=== PATIENT | male | born 1990 | race Caucasian/White ===

== ENCOUNTER 2018-12-19 13:53 | Inpatient (IN) | payer OTHER ==
[~2018-12-19] VITALS: Ht 193 cm; Wt 99.8 kg
[2018-12-19] MEDS ORDERED: TRUVADA 200 MG1 EAC1 ORAL (14:02)
[2018-12-19] MEDS ORDERED: Omnipaque-300 100ml vial INJ PRN (14:15)
--- NOTE | 2018-12-19 14:22 | Emergency Room Report ---
History of Present Illness General Chief Complaint: Abdominal Pain Source: Patient Present Illness HPI Disclaimer: Please note that this report is being documented using PuzlON technology. This can lead to erroneous entry secondary to incorrect interpretation by the dictating instrument. HPI: Otherwise healthy 28-year-old male presents for evaluation of abdominal pain. He was referred to the emergency department for CT scan and preop labs by Dr. Adan. He has been having right lower quadrant abdominal pain that is aching and constant throughout the day. It is worse when sitting upright and walking and better with laying flat. Sometimes when he lays that the pain completely goes away but is been coming back for approximately 3 weeks. Denies abdominal pain to other parts of the abdomen, nausea, vomiting. Does note some loose stools. Denies fever or chills but notes intermittent sweats. Denies chest pain or shortness of breath. No prior history of abdominal surgeries. He was found to have a small nonincarcerated hernia in the right lower quadrant by ultrasound at the office of Dr. Mahogany Tolliver however there is concern for peritonitis he has the pain is out of proportion to exam. Pain is currently a 4 /10. PMH: Denies PSH: Denies Allergies: Denies Social Hx: Denies drug or alcohol abuse Allergies: Coded Allergies: No Known Allergies (Unverified , 12/19/18) Nursing Documentation-PMH Past Medical History: No Stated History Review of Systems All Other Systems: negative except mentioned in HPI Physical Exam Vital Signs Date Time Temp Pulse Resp B/P (MAP) Pulse Ox O2 Delivery O2 Flow Rate FiO2 12/19/18 13:57 99.1 88 16 142/84 (103) 98 Room Air General: Awake and alert, no acute distress HEENT: NC/AT. EOMI. Cardiovascular: RRR. S1 and S2 normal. No murmur appreciated Resp: Normal work of breathing. No cough, wheezing or crackles appreciated Abdomen: Abdomen is soft, nondistended. Tenderness palpation of the right lower quadrant near the anterior iliac crest. No rebound. Negative Rovsing, negative psoas. No periumbilical tenderness or suprapubic tenderness. No Haider sign. No masses palpable : Testes are in anatomic position. No mass in the scrotum. Skin: Intact. No abrasions, laceration or rash over the exposed skin MSK: Normal tone and bulk. Moving all extremities. No obvious deformity. Neuro: Awake and alert. Mentating appropriately. Medical Decision Making Diagnostic Impression: Primary Impression: Abdominal abscess ER Course 28-year-old male presents for evaluation of 3 weeks right lower quadrant pain. He has a known hernia however there is concern for peritonitis and will obtain a CT scan as well preop labs. Dr. Polk will be contacted with the results. Currently states pain is 4/10 and declined pain medication at this time. We will start IV fluids. Laboratory Tests Test 12/19/18 14:30 White Blood Count 20.3 K/UL (4.8-10.8) H Red Blood Count 4.61 M/UL (4.70-6.10) L Hemoglobin 14.8 G/DL (14.2-18.0) Hematocrit 42.8 % (42.0-52.0) Mean Corpuscular Volume 93 FL (80-99) Mean Corpuscular Hemoglobin 32.0 PG (27.0-31.0) H Mean Corpuscular Hemoglobin Concent 34.5 G/DL (32.0-36.0) Red Cell Distribution Width 10.1 % (11.6-14.8) L Platelet Count 260 K/UL (150-450) Mean Platelet Volume 7.4 FL (6.5-10.1) Neutrophils (%) (Auto) % (45.0-75.0) Lymphocytes (%) (Auto) % (20.0-45.0) Monocytes (%) (Auto) % (1.0-10.0) Eosinophils (%) (Auto) % (0.0-3.0) Basophils (%) (Auto) % (0.0-2.0) Neutrophils % (Manual) Pending Lymphocytes % (Manual) Pending Platelet Estimate Pending Platelet Morphology Pending Prothrombin Time 12.6 SEC (9.30-11.50) H Prothrombin Time INR 1.2 (0.9-1.1) H PTT 30 SEC (23-33) Urine Color Yellow Urine Appearance Clear Urine pH 6.5 (4.5-8.0) Urine Specific [place] 1.005 (1.005-1.035) Urine Protein 2+ (NEGATIVE) H Urine Glucose (UA) Negative (NEGATIVE) Urine Ketones 1+ (NEGATIVE) H Urine Blood Negative (NEGATIVE) Urine Nitrite Negative (NEGATIVE) Urine Bilirubin Negative (NEGATIVE) Urine Urobilinogen Normal MG/DL (0.0-1.0) Urine Leukocyte Esterase Negative (NEGATIVE) Urine RBC 0 /HPF (0 - 0) Urine WBC 0-2 /HPF (0 - 0) Urine Squamous Epithelial Cells Few /LPF (NONE/OCC) Urine Bacteria Occasional /HPF (NONE) Urine Mucus Few /LPF (NONE/OCC) H Sodium Level 135 MMOL/L (136-145) L Potassium Level 3.8 MMOL/L (3.5-5.1) Chloride Level 99 MMOL/L (98-107) Carbon Dioxide Level 31 MMOL/L (21-32) Anion Gap 5 mmol/L (5-15) Blood Urea Nitrogen 9 mg/dL (7-18) Creatinine 1.3 MG/DL (0.55-1.30) Estimate Glomerular Filtration Rate > 60 mL/min (>60) Glucose Level 105 MG/DL (74-106) Calcium Level 9.1 MG/DL (8.5-10.1) Total Bilirubin 1.4 MG/DL (0.2-1.0) H Direct Bilirubin 0.3 MG/DL (0.0-0.3) Aspartate Amino Transferase (AST) 29 U/L (15-37) Alanine Aminotransferase (ALT) 64 U/L (12-78) Alkaline Phosphatase 96 U/L (46-116) Total Protein 7.5 G/DL (6.4-8.2) Albumin 3.2 G/DL (3.4-5.0) L Globulin 4.3 g/dL Albumin/Globulin Ratio 0.7 (1.0-2.7) L Lipase 89 U/L (73-393) Reevaluation Time: 15:56 Last Vital Signs Date Time Temp Pulse Resp B/P (MAP) Pulse Ox O2 Delivery O2 Flow Rate FiO2 12/19/18 13:57 99.1 88 16 142/84 (103) 98 Room Air Reevaluation Impression Labs show significantly elevated white blood cell count of 20,000, no evidence of urinary tract infection, renal function is normal. My interpretation of the CT scan shows right-sided perinephric stranding as well as edema of the small and large bowel. I cannot visualize the appendix but the official radiologist interpretation is pending. Discussed with his surgeon, Dr. Adan, who would like him admitted to the medical service for monitoring. He will come reevaluate the patient. Will continue IV fluids, pain medication, give a dose of antibiotics. 1645: Radiology interpretation shows either a right lower quadrant intra-abdominal abscess or a ruptured appendix. Patient will be given Flagyl on top of the cefepime and continued IV fluids. Dr. Adan is requesting admission to Dr. Michelle which we will arrange. Patient remained stable for admission to medical floor. Disposition: ADMITTED INPATIENT Condition: Serious Elvis Hernandez MD Dec 19, 2018 14:22
[2018-12-19 14:47] LABS: APPEARANCE,URINE CLEAR; BILIRUBIN, URINE NEGATIVE (NEGATIVE); GLUCOSE, URINE (UA) NEGATIVE (NEGATIVE); KETONES,URINE 1+ (NEGATIVE); LEUKOCYTE ESTERASE ,URINE NEGATIVE (NEGATIVE); NITRITE,URINE NEGATIVE (NEGATIVE); PH,URINE 6.5 (4.5-8.0); PROTEIN,URINE 2+ (NEGATIVE); UROBILINOGEN,URINE NORMAL MG/DL (0.0-1.0)
[2018-12-19 14:51] LABS: COLOR,URINE YELLOW
[2018-12-19 15:00] LABS: HEMATOCRIT 42.8 % (42.0-52.0); HEMOGLOBIN 14.8 G/DL (14.2-18.0); MEAN CORPUSCULAR VOLUME 93 FL (80-99); PLATELET COUNT 260 K/UL (150-450); RED BLOOD COUNT 4.61 M/UL (4.70-6.10); RED CELL DISTRIBUTION WIDTH 10.1 % (11.6-14.8); WHITE BLOOD COUNT 20.3 K/UL (4.8-10.8)
[2018-12-19 15:07] LABS: INR 1.2 (0.9-1.1)
[2018-12-19 15:08] LABS: ANION GAP 5 mmol/L (5-15); BLOOD UREA NITROGEN 9 mg/dL (7-18); CALCIUM 9.1 MG/DL (8.5-10.1); CARBON DIOXIDE 31 MMOL/L (21-32); CHLORIDE 99 MMOL/L (98-107); CREATININE 1.3 MG/DL (0.55-1.30); POTASSIUM 3.8 MMOL/L (3.5-5.1); SODIUM 135 MMOL/L (136-145)
[2018-12-19 15:19] LABS: ALANINE AMINOTRANSFERASE 64 U/L (12-78); ALBUMIN 3.2 G/DL (3.4-5.0); ALBUMIN/GLOBULIN RATIO 0.7 (1.0-2.7); ALKALINE PHOSPHATASE 96 U/L (46-116); ASPARTATE AMINO TRANSFERASE 29 U/L (15-37); BILIRUBIN,TOTAL 1.4 MG/DL (0.2-1.0)
[2018-12-19 15:21] LABS: BILIRUBIN,DIRECT 0.3 MG/DL (0.0-0.3)
[2018-12-19] MEDS ORDERED: Cefepime HCl 1 GM in D5W 55 ML IVPB ONE (16:00)
[2018-12-19] MEDS ORDERED: Morphine Sulfate 2mg/ml Inj(IV/IM USE ONLY) IVP ONE (16:00)
[2018-12-19] MEDS ORDERED: D5 1/2NS 1,000 ML IV SCH (16:00)
--- NOTE | 2018-12-19 16:17 | Diagnostic Imaging Report ---
Indication: Abdominal pain Technique: Continuous helical transaxial imaging of the abdomen and pelvis was obtained from the lung bases to the pubic symphysis during intravenous contrast administration. Coronal 2-D reformats were also obtained. Study obtained in a Siemens sensation [address] Automatic Exposure Control was utilized. Total Dose length Product (DLP): [address] Dose Index Volume (CTDIvol): 16 mGy Comparison: None Findings: In the right lower quadrant of the abdomen, there is a multicystic partially enhancing mass or fluid collection. This is suspicious for a multiloculated abscess and is inseparable from the cecum. The hepatic flexure and transverse colon are identified but in the location of the multicystic mass the cecum is difficult to distinguish and may be collapsed or may be a part of this mass. Evaluation with oral contrast is recommended and repeat CT suggested. Surrounding fatty soft tissue stranding indicative of inflammation noted. There is some perinephric fluid present. Overall the area of the multiloculated abscess versus mass measures about 9 to 10 cm in the transverse axis and 13 cm craniocaudal. One consideration is a perforated appendicitis. Mild basilar reticulation noted consistent with atelectasis. The liver is enlarged measuring 19 cm. Spleen is enlarged measuring 15 cm. No evidence of bowel obstruction. Bladder is unremarkable. There is a small amount of pelvic free fluid. Gallbladder is unremarkable. There is no hydronephrosis. Impression: 8 x 9 x 13 cm multicystic mass versus multiloculated abscess in the right lower quadrant abdomen. Suspect this is abscess. This could be on the basis of ruptured appendicitis. Before any consideration of percutaneous biopsy/drainage or surgery, recommend repeating the CT with good oral contrast to ascertain the relationship of this mass/abscess with the cecum and ascending colon. Hepatosplenomegaly The CT scanner at [facility] is accredited by the [employer] and the scans are performed using dose optimization techniques as appropriate to a performed exam including Automatic Exposure control.
[2018-12-19 17:14] VITALS: BP 120/67
--- NOTE | 2018-12-19 17:22 | NUR ---
ED Nurse Note: pt walked in c/o rt lower abd pain x 3 weeks . blood and urine sent pt medicated ermd eval done ct done pt awaiting admit.
--- NOTE | 2018-12-19 17:24 | NUR ---
ED Nurse Note: pt from home no swabs needed. med recon done belongings list done.
--- NOTE | 2018-12-19 17:55 | NUR ---
NURSE NOTES: patient admtited to 418/ from ER under Dr. Phillips care. dx with colitis. alert. oriented. verbally responsive. no respiratory distress noted. mild discomfort on abd are. IV on RAC20 intact. room air. ambulatory. bed in the lowest position. call light within reach. notified dr. phillips for admission orders.
[2018-12-19 18:01] VITALS: BP 118/64
--- NOTE | 2018-12-19 19:40 | NUR ---
NURSE NOTES: RN received call from . MD will put the admission order for the patient.
--- NOTE | 2018-12-19 19:41 | NUR ---
HAND-OFF: Report given to ROCIO Diaz.
[2018-12-19] MEDS ORDERED: Morphine Sulfate 2mg/ml Inj(IV/IM USE ONLY) IVP PRN (19:45)
--- NOTE | 2018-12-19 19:57 | NUR ---
NURSE NOTES: Received patient in bed, awake, alert, oriented, IV site is clean dry and intact, no acute distress noted, ambulatory with stable gate. Call light is within reach, bed is in low position, locked and alarm is on, will continue to monitor for comfort and safety.
[2018-12-19 20:00] VITALS: BP 113/60
[2018-12-19] MEDS: D5NS 1,000 ML IV SCH (20:26)
[2018-12-19] MEDS: Heparin 5000 units/ml inj SUBQ SCH (20:28)
--- NOTE | 2018-12-19 20:44 | Consultation ---
History of Present Illness General Date patient seen: Dec 19, 2018 Reason for Hospitalization: Abdominal Pain Present Illness HPI This is a very pleasant 28-year-old male here from [place] who began to develop right lower quadrant abdominal discomfort approximately 2 weeks ago. Pain initially described as sharp right lower quadrant pain admitted with out radiation. He initially did not think much of it and recently went to his primary care physician for evaluation. Given the duration it was thought to be potential a new forming hernia as it was aggravated by movement and exercise. He had an ultrasound which identified a potential small right inguinal hernia. He was referred to myself for evaluation at which time I had seen in the office earlier this morning. Patient was seen evaluation in the office and on examination was noted to have significant right lower quadrant tenderness unlikely related to a hernia. Given duration and physical examination I recommended patient go directly to the emergency department for evaluation as I had a significant suspicion for possible to abdominal pathology. Patient came to ED at which time was noted to have a leukocytosis of 20,[address] scan with complex multiloculated fluid abscess in the right lower quadrant potentially perforated appendicitis. He was admitted for further care and management to medical service and I was consulted to surgically investigate and care for patient. Patient seen, patient evaluate, chart reviewed. Findings discussed with patient. Allergies: Coded Allergies: No Known Allergies (Unverified , 12/19/18) Medication History Scheduled Emtricitabine/Tenofovir 200-300MG* (Truvada 200-300MG*), 1 TAB ORAL DAILY, ( Reported) Patient History History Provided By: Patient Healthcare decision maker Resuscitation status Advanced Directive on File Past Medical/Surgical History Past Medical/Surgical History: (1) Abdominal abscess Review of Systems Review of Symptoms General ROS: no weight loss or fever Psychological ROS: no depression or mood changes, no memory loss Ophthalmic ROS: no visual changes or eye irritation ENT ROS: no nasal congestion, hearing loss, dizziness Allergy and Immunology ROS: no allergic symptoms or urticaria Hematological and Lymphatic ROS: no swollen glands, unusual bleeding or bruising Endocrine ROS: no polyuria, polydipsia, weight changes, temperature intolerance Respiratory ROS: no cough, shortness of breath, or wheezing Cardiovascular ROS: no chest pain or dyspnea on exertion Gastrointestinal ROS: abdominal pain, bright red blood in stool. Musculoskeletal ROS: no myalgias or arthralgias Neurological ROS: no TIA or stroke symptoms Dermatological ROS: no new or changing skin lesions, rashes or pruritis Physical Exam Physical Exam General appearance: alert, cooperative, no distress, appears stated age Head: Normocephalic, without obvious abnormality, atraumatic Eyes: conjunctivae/corneas clear. PERRL, EOM's intact. Fundi benign Throat: Lips, mucosa, and tongue normal. Teeth and gums normal Neck: supple, symmetrical, trachea midline, no adenopathy, thyroid: not enlarged, symmetric, no tenderness/mass/nodules, no carotid bruit and no JVD Lungs: clear to auscultation bilaterally Heart: regular rate and rhythm, S1, S2 normal, no murmur, click, rub or gallop Abdomen: soft, RLQ-tender with guarding. Bowel sounds normal. No masses, no organomegaly Extremities: extremities normal, atraumatic, no cyanosis or edema Pulses: 2+ and symmetric Skin: Skin color, texture, turgor normal. No rashes or lesions Neurologic: Grossly normal Last 24 Hour Vital Signs Date Time Temp Pulse Resp B/P (MAP) Pulse Ox O2 Delivery O2 Flow Rate FiO2 12/19/18 18:48 Room Air 12/19/18 18:40 Room Air 12/19/18 18:02 99.2 89 16 120/67 100 Room Air 12/19/18 18:01 99.2 86 19 118/64 99 Room Air 12/19/18 17:18 89 16 Room Air 12/19/18 17:14 99.2 89 16 120/67 100 Room Air 12/19/18 17:08 99.2 12/19/18 13:57 99.1 88 16 142/84 (103) 98 Room Air Laboratory Tests Test 12/19/18 14:30 White Blood Count 20.3 K/UL (4.8-10.8) H Red Blood Count 4.61 M/UL (4.70-6.10) L Hemoglobin 14.8 G/DL (14.2-18.0) Hematocrit 42.8 % (42.0-52.0) Mean Corpuscular Volume 93 FL (80-99) Mean Corpuscular Hemoglobin 32.0 PG (27.0-31.0) H Mean Corpuscular Hemoglobin Concent 34.5 G/DL (32.0-36.0) Red Cell Distribution Width 10.1 % (11.6-14.8) L Platelet Count 260 K/UL (150-450) Mean Platelet Volume 7.4 FL (6.5-10.1) Neutrophils (%) (Auto) % (45.0-75.0) Lymphocytes (%) (Auto) % (20.0-45.0) Monocytes (%) (Auto) % (1.0-10.0) Eosinophils (%) (Auto) % (0.0-3.0) Basophils (%) (Auto) % (0.0-2.0) Differential Total Cells Counted 100 Neutrophils % (Manual) 85 % (45-75) H Lymphocytes % (Manual) 9 % (20-45) L Monocytes % (Manual) 6 % (1-10) Eosinophils % (Manual) 0 % (0-3) Basophils % (Manual) 0 % (0-2) Band Neutrophils 0 % (0-8) Platelet Estimate Adequate Platelet Morphology Normal Red Blood Cell Morphology Normal Prothrombin Time 12.6 SEC (9.30-11.50) H Prothromb Time International Ratio 1.2 (0.9-1.1) H Activated Partial Thromboplast Time 30 SEC (23-33) Urine Color Yellow Urine Appearance Clear Urine pH 6.5 (4.5-8.0) Urine Specific [place] 1.005 (1.005-1.035) Urine Protein 2+ (NEGATIVE) H Urine Glucose (UA) Negative (NEGATIVE) Urine Ketones 1+ (NEGATIVE) H Urine Blood Negative (NEGATIVE) Urine Nitrite Negative (NEGATIVE) Urine Bilirubin Negative (NEGATIVE) Urine Urobilinogen Normal MG/DL (0.0-1.0) Urine Leukocyte Esterase Negative (NEGATIVE) Urine RBC 0 /HPF (0 - 0) Urine WBC 0-2 /HPF (0 - 0) Urine Squamous Epithelial Cells Few /LPF (NONE/OCC) Urine Bacteria Occasional /HPF (NONE) Urine Mucus Few /LPF (NONE/OCC) H Sodium Level 135 MMOL/L (136-145) L Potassium Level 3.8 MMOL/L (3.5-5.1) Chloride Level 99 MMOL/L (98-107) Carbon Dioxide Level 31 MMOL/L (21-32) Anion Gap 5 mmol/L (5-15) Blood Urea Nitrogen 9 mg/dL (7-18) Creatinine 1.3 MG/DL (0.55-1.30) Estimat Glomerular Filtration Rate > 60 mL/min (>60) Glucose Level 105 MG/DL (74-106) Calcium Level 9.1 MG/DL (8.5-10.1) Total Bilirubin 1.4 MG/DL (0.2-1.0) H Direct Bilirubin 0.3 MG/DL (0.0-0.3) Aspartate Amino Transf (AST/SGOT) 29 U/L (15-37) Alanine Aminotransferase (ALT/SGPT) 64 U/L (12-78) Alkaline Phosphatase 96 U/L (46-116) Total Protein 7.5 G/DL (6.4-8.2) Albumin 3.2 G/DL (3.4-5.0) L Globulin 4.3 g/dL Albumin/Globulin Ratio 0.7 (1.0-2.7) L Lipase 89 U/L (73-393) Height (Feet): 6 Height (Inches): 4.00 Weight (Pounds): 220 Medications Current Medications Medications (Trade) Dose Ordered Sig/Leslie Route PRN Reason Start Time Stop Time Status Last Admin Dose Admin Acetaminophen (Tylenol) 650 mg Q4H PRN ORAL Mild Pain/Temp > 100.5 12/19/18 20:15 01/18/19 20:14 12/19/18 20:26 Dextrose/Sodium Chloride 1,000 ml @ 100 mls/hr Q10H IV 12/19/18 19:45 01/18/19 19:44 12/19/18 20:26 Heparin Sodium (Porcine) (Heparin 5000 units/ml) 5,000 units EVERY 12 HOURS SUBQ 12/19/18 21:00 01/18/19 20:59 12/19/18 20:28 Iohexol (OMNIPAQUE-300 100ml) 100 ml NOW PRN INJ Radiology Procedure 12/19/18 14:15 12/21/18 14:10 Metronidazole 100 ml @ 100 mls/hr Q8HR IVPB 12/19/18 22:00 12/26/18 21:59 Morphine Sulfate (Morphine Sulfate) 1 mg Q4H PRN IVP For Pain 12/19/18 19:45 12/26/18 19:44 Ondansetron HCl (Zofran) 4 mg Q6H PRN IVP Nausea & Vomiting 12/19/18 19:45 01/18/19 19:44 Pantoprazole (Protonix) 40 mg DAILY IVP 12/20/18 09:00 01/19/19 08:59 Piperacillin Sod/ Tazobactam Sod 3.375 gm/Sodium Chloride 110 ml @ 27.5 mls/hr EVERY 8 HOURS IVPB 12/19/18 22:00 12/24/18 21:59 Assessment/Plan Problem List: (1) Perforated appendicitis Assessment & Plan: This is a 28-year-old male with 2-week of right lower quadrant abdominal pain who was noted to have focal right lower quadrant tenderness with rebound and guarding on my examination. Leukocytosis 20,000. CT scan with complex multiloculated fluid collection abscess in the right lower quadrant indistinct from the cecum. Likely her presenting acute perforated appendicitis with abscess. Given the duration and above CT findings and high suspicion for perforated acute appendicitis. At this time would recommend nonoperative management with IV antibiotics. Will discuss with radiology for potential catheter drainage if possible. Okay for diet from surgical standpoint will follow with exam, investigation, recommendations. Thank you ICD Codes: K35.32 - Acute appendicitis with perforation and localized peritonitis, without abscess SNOMED: 96208488 (2) Abdominal abscess Assessment & Plan: In the right lower quadrant of the abdomen, there is a multicystic partially enhancing mass or fluid collection. This is suspicious for a multiloculated abscess and is inseparable from the cecum. The hepatic flexure and transverse colon are identified but in the location of the multicystic mass the cecum is difficult to distinguish and may be collapsed or may be a part of this mass. Evaluation with oral contrast is recommended and repeat CT suggested. Surrounding fatty soft tissue stranding indicative of inflammation noted. There is some perinephric fluid present. Overall the area of the multiloculated abscess versus mass measures about 9 to 10 cm in the transverse axis and 13 cm craniocaudal. One consideration is a perforated appendicitis. Mild basilar reticulation noted consistent with atelectasis. The liver is enlarged measuring 19 cm. Spleen is enlarged measuring 15 cm. No evidence of bowel obstruction. Bladder is unremarkable. There is a small amount of pelvic free fluid. Gallbladder is unremarkable. There is no hydronephrosis. SNOMED: [id number] Elmer Adan Dec 19, 2018 20:44
[2018-12-19] MEDS: Piperacillin/Tazobactam 3.375 GM in NS 110 ML IVPB SCH (22:13)
[2018-12-20] VITALS: BP 99/58
[2018-12-20 04:00] VITALS: BP 106/53
[2018-12-20] MEDS: D5NS 1,000 ML IV SCH ×2 (04:58→17:37)
[2018-12-20 05:57] LABS: HEMATOCRIT 38.3 % (42.0-52.0); HEMOGLOBIN 13.5 G/DL (14.2-18.0); MEAN CORPUSCULAR VOLUME 92 FL (80-99); PLATELET COUNT 264 K/UL (150-450); RED BLOOD COUNT 4.17 M/UL (4.70-6.10); RED CELL DISTRIBUTION WIDTH 10.4 % (11.6-14.8); WHITE BLOOD COUNT 16.5 K/UL (4.8-10.8)
[2018-12-20] MEDS: Piperacillin/Tazobactam 3.375 GM in NS 110 ML IVPB SCH ×3 (06:04→21:50)
[2018-12-20 06:15] LABS: ALANINE AMINOTRANSFERASE 65 U/L (12-78); ALBUMIN 2.7 G/DL (3.4-5.0); ALBUMIN/GLOBULIN RATIO 0.7 (1.0-2.7); ALKALINE PHOSPHATASE 93 U/L (46-116); ANION GAP 6 mmol/L (5-15); ASPARTATE AMINO TRANSFERASE 31 U/L (15-37); BILIRUBIN,TOTAL 0.8 MG/DL (0.2-1.0); BLOOD UREA NITROGEN 11 mg/dL (7-18); CALCIUM 8.7 MG/DL (8.5-10.1); CARBON DIOXIDE 29 MMOL/L (21-32); CHLORIDE 101 MMOL/L (98-107); CREATININE 1.3 MG/DL (0.55-1.30); INR 1.2 (0.9-1.1); POTASSIUM 3.9 MMOL/L (3.5-5.1); SODIUM 136 MMOL/L (136-145)
--- NOTE | 2018-12-20 07:08 | NUR ---
HAND-OFF: Report given to Wade CHAN.
--- NOTE | 2018-12-20 07:54 | NUR ---
NURSE NOTES: Patient alert x4; on room air, no sing of distress and shortness of breath; no sing of chest pain; IV Right AC 20G D5NS 100cc running; side rails up x2, breaks engaged, bed at lowest position; call light within reach; will keep monitoring.
[2018-12-20 08:00] VITALS: BP 115/65
[2018-12-20] MEDS: Pantoprazole Inj IVP SCH (08:45)
[2018-12-20] MEDS: Heparin 5000 units/ml inj SUBQ SCH ×2 (08:48→20:24)
--- NOTE | 2018-12-20 10:30 | History and Physical Report ---
DATE OF ADMISSION: 12/19/2018 CHIEF COMPLAINT: Possible ruptured appendicitis. HISTORY OF PRESENT ILLNESS: The patient is a 28-year-old male. He has no past medical history. He presented to his PMD with two weeks of right lower quadrant abdominal pain. He states he had an ultrasound that showed a possible small hernia. His pain persisted and he was then referred to a surgeon, who ordered a CAT scan that showed a loculated fluid collection in the right lower quadrant. The patient does admit to some subjective fevers and chills, but he has had no anorexia, no nausea, no vomiting. Denies any diarrhea or bright red blood per rectum. In light of the CT scan findings, he is now admitted for further evaluation and care. PAST MEDICAL HISTORY: None. PAST SURGICAL HISTORY: None. CURRENT MEDICATIONS: Include only . FAMILY HISTORY: Noncontributory. SOCIAL HISTORY: Negative for tobacco, ethanol, or drugs. REVIEW OF SYSTEMS: Unremarkable except for subjective fevers and chills and right lower quadrant abdominal pain. PHYSICAL EXAMINATION: VITAL SIGNS: Temperature 101.8, pulse 87, respirations 18, and blood pressure 106/53. GENERAL: The patient is well-developed, no apparent distress. HEART: Regular rate and rhythm. LUNGS: Clear. ABDOMEN: Soft. Minimally tender in the right lower quadrant. There is no rebound or guarding. EXTREMITIES: Without clubbing, cyanosis, or edema. LABORATORY DATA: Sodium 135, potassium 3.8, chloride 99, bicarb 31, BUN 9, creatinine 1.3. Total bilirubin of 1.4. INR is 1.2. White count is 20,000, hemoglobin 14, hematocrit 42, platelets 260. ASSESSMENT: This is a pleasant male, no past medical history, who presents with complaints of two weeks of right lower quadrant abdominal pain and CT scan findings consistent with possible ruptured appendicitis. PLAN: IV antibiotics. Followup cultures. Surgical followup. The patient is medically stable with surgery as needed. His perioperative risk is average for his age and sex. Cedrick Michelle M.D. DR: RADHA JOB#: [id number] CC:
[2018-12-20 12:00] VITALS: BP 106/60
--- NOTE | 2018-12-20 12:51 | NUR ---
CASE MANAGEMENT:REVIEW 28 YR OLD MALE PRESENTED TO ER CC: ABDOMINAL PAIN SI: ABDOMINAL ABSCESS 99.2 88 16 142/84 98% ON RA WBC+20.3 IS: 1L NS BOLUS IV CEFEPIME IV MORPHINE CT ABD/PELVIS : TO MED/SURG 4 EAST INTERQUAL CRITERIA MET
--- NOTE | 2018-12-20 14:32 | NUR ---
*-* INSURANCE *-* ALL CLINICALS AND REVIEWS HAVE BEEN FAXED TO: [facility]:SHELIA Sierra: [phone] Addendum: 12/20/18 at 1440 by ROSALINDA BABB CLINICALS NOT SENT REQUEST FOR CLINICALS HAS A DIFFERENT NAME THAT IN MSG VANITA LEFT FOR NCM: TO CALL ME.
[2018-12-20 16:00] VITALS: BP 101/58
--- NOTE | 2018-12-20 16:38 | Surgery Progress Note ---
Surgery Progress Note Subjective Symptoms: improved, tolerating diet, voiding well, passing flatus, BM Additional Comments Patient seen and examined bedside. States he feels little bit better. Afebrile , hemodynamic stable, leukocytosis improving, ESR and CRP noted still with abdominal pain worse with palpation Objective Last 24 Hour Vital Signs Date Time Temp Pulse Resp B/P (MAP) Pulse Ox O2 Delivery O2 Flow Rate FiO2 12/20/18 12:00 98.8 76 18 106/60 (75) 99 12/20/18 09:00 Room Air 12/20/18 08:00 98.0 76 18 115/65 (82) 97 12/20/18 04:58 99.0 12/20/18 04:00 101.8 87 18 106/53 (70) 96 12/20/18 00:10 99.9 12/20/18 00:00 99.1 87 19 99/58 (72) 98 12/19/18 21:00 Room Air 12/19/18 20:00 99.9 98 17 113/60 (77) 98 98 12/19/18 18:48 Room Air 12/19/18 18:40 Room Air 12/19/18 18:02 99.2 89 16 120/67 100 Room Air 12/19/18 18:01 99.2 86 19 118/64 99 Room Air 12/19/18 17:18 89 16 Room Air 12/19/18 17:14 99.2 89 16 120/67 100 Room Air 12/19/18 17:08 99.2 I&O Intake and Output 12/19/18 12/20/18 19:00 07:00 Intake Total 1050 ml 980 ml Output Total 1000 ml Balance 1050 ml -20 ml Intake Oral 780 ml IV Total 1050 ml 200 ml Output Urine Total 1000 ml # Voids 1 3 Cardiovascular: RSR Respiratory: clear Abdomen: soft, tenderness, present bowel sounds, non-distended Extremities: no edema, no tenderness, no cyanosis Laboratory Tests Test 12/20/18 05:35 White Blood Count 16.5 K/UL (4.8-10.8) H Red Blood Count 4.17 M/UL (4.70-6.10) L Hemoglobin 13.5 G/DL (14.2-18.0) L Hematocrit 38.3 % (42.0-52.0) L Mean Corpuscular Volume 92 FL (80-99) Mean Corpuscular Hemoglobin 32.4 PG (27.0-31.0) H Mean Corpuscular Hemoglobin Concent 35.3 G/DL (32.0-36.0) Red Cell Distribution Width 10.4 % (11.6-14.8) L Platelet Count 264 K/UL (150-450) Mean Platelet Volume 7.5 FL (6.5-10.1) Neutrophils (%) (Auto) % (45.0-75.0) Lymphocytes (%) (Auto) % (20.0-45.0) Monocytes (%) (Auto) % (1.0-10.0) Eosinophils (%) (Auto) % (0.0-3.0) Basophils (%) (Auto) % (0.0-2.0) Differential Total Cells Counted 100 Neutrophils % (Manual) 88 % (45-75) H Lymphocytes % (Manual) 4 % (20-45) L Monocytes % (Manual) 8 % (1-10) Eosinophils % (Manual) 0 % (0-3) Basophils % (Manual) 0 % (0-2) Band Neutrophils 0 % (0-8) Platelet Estimate Adequate Platelet Morphology Normal Red Blood Cell Morphology Normal Erythrocyte Sedimentation Rate 68 MM/HR (0-15) H Prothrombin Time 12.8 SEC (9.30-11.50) H Prothromb Time International Ratio 1.2 (0.9-1.1) H Activated Partial Thromboplast Time 30 SEC (23-33) Sodium Level 136 MMOL/L (136-145) Potassium Level 3.9 MMOL/L (3.5-5.1) Chloride Level 101 MMOL/L (98-107) Carbon Dioxide Level 29 MMOL/L (21-32) Anion Gap 6 mmol/L (5-15) Blood Urea Nitrogen 11 mg/dL (7-18) Creatinine 1.3 MG/DL (0.55-1.30) Estimat Glomerular Filtration Rate > 60 mL/min (>60) Glucose Level 115 MG/DL (74-106) H Lactic Acid Level 0.80 mmol/L (0.4-2.0) Calcium Level 8.7 MG/DL (8.5-10.1) Total Bilirubin 0.8 MG/DL (0.2-1.0) Aspartate Amino Transf (AST/SGOT) 31 U/L (15-37) Alanine Aminotransferase (ALT/SGPT) 65 U/L (12-78) Alkaline Phosphatase 93 U/L (46-116) C-Reactive Protein, Quantitative 32.1 mg/dL (0.00-0.90) H Total Protein 6.6 G/DL (6.4-8.2) Albumin 2.7 G/DL (3.4-5.0) L Globulin 3.9 g/dL Albumin/Globulin Ratio 0.7 (1.0-2.7) L Amylase Level 33 U/L (25-115) Plan Problems: (1) Perforated appendicitis Assessment & Plan: This is a 28-year-old male with 2-week of right lower quadrant abdominal pain who was noted to have focal right lower quadrant tenderness with rebound and guarding on my examination. Leukocytosis 20,000. CT scan with complex multiloculated fluid collection abscess in the right lower quadrant indistinct from the cecum. Likely her presenting acute perforated appendicitis with abscess. Given the duration and above CT findings and high suspicion for perforated acute appendicitis. At this time would recommend nonoperative management with IV antibiotics. Will discuss with radiology for potential catheter drainage if possible. Okay for diet from surgical standpoint will follow with exam, investigation, recommendations. Continue with IV antibiotics until pain resolved and leukocytosis normal. Thank you (2) Abdominal abscess Assessment & Plan: In the right lower quadrant of the abdomen, there is a multicystic partially enhancing mass or fluid collection. This is suspicious for a multiloculated abscess and is inseparable from the cecum. The hepatic flexure and transverse colon are identified but in the location of the multicystic mass the cecum is difficult to distinguish and may be collapsed or may be a part of this mass. Evaluation with oral contrast is recommended and repeat CT suggested. Surrounding fatty soft tissue stranding indicative of inflammation noted. There is some perinephric fluid present. Overall the area of the multiloculated abscess versus mass measures about 9 to 10 cm in the transverse axis and 13 cm craniocaudal. One consideration is a perforated appendicitis. Mild basilar reticulation noted consistent with atelectasis. The liver is enlarged measuring 19 cm. Spleen is enlarged measuring 15 cm. No evidence of bowel obstruction. Bladder is unremarkable. There is a small amount of pelvic free fluid. Gallbladder is unremarkable. There is no hydronephrosis. Benyamini,Elmer Dec 20, 2018 16:38
--- NOTE | 2018-12-20 19:15 | NUR ---
HAND-OFF: Report given to ROCIO Cortés.
--- NOTE | 2018-12-20 19:45 | Consultation ---
DATE OF CONSULTATION: 12/20/2018 INFECTIOUS DISEASE CONSULTATION CONSULTING PHYSICIAN: Julian Florentino M.D. PRIMARY ATTENDING PHYSICIAN: Cedrick Michelle M.D. PRIMARY SURGEON: Elmer Adan M.D. REASON FOR CONSULTATION: Perforated appendix and intra-abdominal abscess. HISTORY OF PRESENT ILLNESS: This is a 28-year-old white male admitted yesterday from home. The patient has abdominal pain since two weeks ago. Symptoms started some things like gastroenteritis with nausea and vomiting. The patient had a visit to his primary doctor, was diagnosed with hernia and referred surgeon and the surgeon sends the patient to hospital for further evaluation. A CT scan of the abdomen and pelvis showed the abdominal abscess. PAST MEDICAL HISTORY: Significant, but the patient takes Truvada for HIV prophylaxis. ALLERGIES: No known drug allergies. MEDICATIONS: Zosyn, heparin, Tylenol, morphine, Flagyl, Zofran. SOCIAL HISTORY: Originally from [place], single. Works in [employer]. Denies smoking and alcohol abuse. He use weeds occasionally. REVIEW OF SYSTEMS: Fever in hospital, may have fever at home as well, but never checked it. Right lower abdomen pain and tenderness and dry coughing. PHYSICAL EXAMINATION: VITAL SIGNS: T-max is 101.8, current temperature 98, pulse 76, blood pressure 115/65. GENERAL APPEARANCE: Well developed, muscular, in no acute distress. HEAD AND NECK: Purvis conjunctivae. HEART: Normal rate. LUNGS: Clear. ABDOMEN: Soft. Tenderness in the right lower abdomen. EXTREMITIES: No edema. NEUROLOGIC: Awake, alert, oriented x3. LABORATORY AND DIAGNOSTIC DATA: WBC at the time of admission 20.3 today is 16.5, hemoglobin 13.5, hematocrit 38.3, and platelets is 264,000. ESR is 68. Sodium 136, potassium 3.9, chloride 109, bicarb 29, BUN 11, creatinine 1.3, glucose 115, bilirubin 0.8. CT scan of the abdomen and pelvis done yesterday showed 8 x 9 x 14 cm cystic mass secondary to abscess in the right lower quadrant, this could be basis of ruptured appendicitis. IMPRESSION: Ruptured appendicitis with intraperitoneal abscess. RECOMMENDATIONS: Continue Zosyn. Discontinue Flagyl. The patient will have CT drainage of the abscess. We will follow up the cultures. At the end of my exam, I thank Dr. Michelle for involving me in the care of this patient. Julian Florentino M.D. DR: JACKY JOB#: [id number] CC: LAMBERT
--- NOTE | 2018-12-20 19:47 | NUR ---
NURSE NOTES: Received patient in bed, awake, alert, and oriented x4, ambulatory with steady gate, IV site is clean dry and intact. Call light is within reach, bed is in low position, locked and alarm is on. Will continue to monitor for comfort and safety.
[2018-12-20 20:00] VITALS: BP 100/60
[2018-12-21 00:52] VITALS: BP 110/75
[2018-12-21] MEDS: D5NS 1,000 ML IV SCH ×2 (01:45→17:28)
[2018-12-21 04:00] VITALS: BP 102/58
[2018-12-21] MEDS: Piperacillin/Tazobactam 3.375 GM in NS 110 ML IVPB SCH ×3 (05:05→21:38)
[2018-12-21 06:52] LABS: BASOPHILS % (AUTO) 0.5 % (0.0-2.0); EOSINOPHILS % (AUTO) 0.3 % (0.0-3.0); HEMATOCRIT 40.6 % (42.0-52.0); HEMOGLOBIN 14.3 G/DL (14.2-18.0); LYMPHOCYTES % (AUTO) 9.8 % (20.0-45.0); MEAN CORPUSCULAR VOLUME 91 FL (80-99); MONOCYTES % (AUTO) 8.8 % (1.0-10.0); NEUTROPHILS % (AUTO) 80.6 % (45.0-75.0); PLATELET COUNT 276 K/UL (150-450); RED BLOOD COUNT 4.46 M/UL (4.70-6.10); RED CELL DISTRIBUTION WIDTH 10.4 % (11.6-14.8); WHITE BLOOD COUNT 13.4 K/UL (4.8-10.8)
[2018-12-21 07:27] LABS: ALANINE AMINOTRANSFERASE 66 U/L (12-78); ALBUMIN 2.7 G/DL (3.4-5.0); ALBUMIN/GLOBULIN RATIO 0.6 (1.0-2.7); ALKALINE PHOSPHATASE 89 U/L (46-116); ANION GAP 6 mmol/L (5-15); ASPARTATE AMINO TRANSFERASE 26 U/L (15-37); BLOOD UREA NITROGEN 8 mg/dL (7-18); CALCIUM 8.7 MG/DL (8.5-10.1); CARBON DIOXIDE 32 MMOL/L (21-32); CHLORIDE 101 MMOL/L (98-107); CREATININE 1.4 MG/DL (0.55-1.30); POTASSIUM 3.6 MMOL/L (3.5-5.1); SODIUM 138 MMOL/L (136-145)
--- NOTE | 2018-12-21 07:28 | NUR ---
HAND-OFF: Report given to Carmen CHAN.
--- NOTE | 2018-12-21 07:32 | NUR ---
NURSE NOTES: Received report from ROCIO Diaz. Patient A&oX4. On room air, no signs of distress or labored breathing. IV intact, patent, and infusing IV fluids. Bed in lowest position with call light in reach. Will continue to monitor.
--- NOTE | 2018-12-21 07:38 | General Progress Note ---
Assessment/Plan Problem List: (1) Abdominal abscess SNOMED: 60816388 (2) Perforated appendicitis ICD Codes: K35.32 - Acute appendicitis with perforation and localized peritonitis, without abscess SNOMED: 94900793 Status: stable, progressing Assessment/Plan: ivf iv abx monitor labs/renal fxn pain rx poc per surgery Subjective ROS Limited/Unobtainable: No Constitutional: Reports: fever, weakness HEENT: Reports: no symptoms Cardiovascular: Reports: no symptoms Respiratory: Reports: no symptoms Gastrointestinal/Abdominal: Reports: abdominal pain Genitourinary: Reports: no symptoms Neurologic/Psychiatric: Reports: no symptoms Endocrine: Reports: no symptoms Hematologic/Lymphatic: Reports: no symptoms Allergies: Coded Allergies: No Known Allergies (Unverified , 12/19/18) All Systems: reviewed and negative except above Subjective no events. ID and surgery noted. feels "weak." decreased abd pain and fevers. Objective Last 24 Hour Vital Signs Date Time Temp Pulse Resp B/P (MAP) Pulse Ox O2 Delivery O2 Flow Rate FiO2 12/21/18 04:00 98.0 75 19 102/58 (73) 97 75 12/21/18 00:52 99.1 74 21 110/75 (87) 97 12/20/18 21:16 Room Air 12/20/18 20:55 100.0 12/20/18 20:00 102.6 86 19 100/60 (73) 98 12/20/18 16:00 99.1 89 18 101/58 (72) 96 12/20/18 12:00 98.8 76 18 106/60 (75) 99 12/20/18 09:00 Room Air 12/20/18 08:00 98.0 76 18 115/65 (82) 97 Intake and Output 12/20/18 12/21/18 19:00 07:00 Intake Total 1200.0 ml Output Total 750 ml Balance 450.0 ml Intake Oral 480 ml IV Total 720.0 ml Output Urine Total 750 ml # Voids 2 Laboratory Tests 12/21/18 06:40: White Blood Count 13.4H, Red Blood Count 4.46L, Hemoglobin 14.3, Hematocrit 40.6L, Mean Corpuscular Volume 91, Mean Corpuscular Hemoglobin 32.0H, Mean Corpuscular Hemoglobin Concent 35.2, Red Cell Distribution Width 10.4L, Platelet Count 276, Mean Platelet Volume 7.5, Neutrophils (%) (Auto) 80.6H, Lymphocytes (%) (Auto) 9.8L, Monocytes (%) (Auto) 8.8, Eosinophils (%) (Auto) 0.3, Basophils (%) (Auto) 0.5, Sodium Level 138, Potassium Level 3.6, Chloride Level 101, Carbon Dioxide Level 32, Anion Gap 6, Blood Urea Nitrogen 8, Creatinine 1.4H, Estimat Glomerular Filtration Rate 59.5, Glucose Level 103, Calcium Level 8.7, Total Bilirubin 1.0, Aspartate Amino Transf (AST/SGOT) 26, Alanine Aminotransferase (ALT/SGPT) 66, Alkaline Phosphatase 89, Total Protein 7.0, Albumin 2.7L, Globulin 4.3, Albumin/Globulin Ratio 0.6L Height (Feet): 6 Height (Inches): 4.00 Weight (Pounds): 220 General Appearance: WD/WN, alert Neck: supple Cardiovascular: regular rhythm Respiratory/Chest: lungs clear Abdomen: normal bowel sounds, non tender, soft, no organomegaly, no mass Edema: no edema noted Arm (L), no edema noted Arm (R), no edema noted Leg (L), no edema noted Leg (R), no edema noted Pedal (L), no edema noted Pedal (R), no edema noted 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
[2018-12-21 08:00] VITALS: BP 107/61
--- NOTE | 2018-12-21 08:35 | NUR ---
NURSE NOTES: Patient alert x4; on room air, no sing of distress and shortness of breath; IV line dry and intact, infusing Zosyn; side rails up x2, breaks engaged, bed at lowest position; call light within reach; will keep monitoring.
[2018-12-21] MEDS: Pantoprazole Inj IVP SCH (09:05)
[2018-12-21] MEDS: Lactobacillus-GG tablet ORAL SCH ×3 (09:05→17:28)
[2018-12-21] MEDS: Heparin 5000 units/ml inj SUBQ SCH ×2 (09:06→21:43)
--- NOTE | 2018-12-21 11:28 | NUR ---
NURSE NOTES: Patient said he had diarrhea and asking if we can change his diet and see if he can tolerate it; I communicated MD Michelle and waiting for order.
--- NOTE | 2018-12-21 13:23 | Infectious Diseases Prog Note ---
Assessment/Plan Assessment/Plan IMPRESSION: Ruptured appendicitis intraperitoneal abscess. RECOMMENDATIONS: Continue Zosyn Plan by surgeon Subjective ROS Limited/Unobtainable: No Constitutional: Reports: no symptoms, other - feels better Respiratory: Reports: no symptoms Cardiovascular: Reports: no symptoms Gastrointestinal/Abdominal: Reports: diarrhea Genitourinary: Reports: no symptoms Musculoskeletal: Reports: no symptoms Allergies: Coded Allergies: No Known Allergies (Unverified , 12/19/18) Objective Vital Signs Last 24 Hour Vital Signs Date Time Temp Pulse Resp B/P (MAP) Pulse Ox O2 Delivery O2 Flow Rate FiO2 12/21/18 09:00 Room Air 12/21/18 08:00 98.4 77 20 107/61 (76) 98 12/21/18 04:00 98.0 75 19 102/58 (73) 97 75 12/21/18 00:52 99.1 74 21 110/75 (87) 97 12/20/18 21:16 Room Air 12/20/18 20:55 100.0 12/20/18 20:00 102.6 86 19 100/60 (73) 98 12/20/18 16:00 99.1 89 18 101/58 (72) 96 Height (Feet): 6 Height (Inches): 4.00 Weight (Pounds): 220 General Appearance: no acute distress HEENT: mucous membranes moist Respiratory/Chest: lungs clear Cardiovascular: normal rate Abdomen: other - tenderness in deep palpation in RLQ Extremities: no edema Neurologic/Psychiatric: alert, oriented x 3, responsive Laboratory Tests Test 12/21/18 06:40 White Blood Count 13.4 K/UL (4.8-10.8) H Red Blood Count 4.46 M/UL (4.70-6.10) L Hemoglobin 14.3 G/DL (14.2-18.0) Hematocrit 40.6 % (42.0-52.0) L Mean Corpuscular Volume 91 FL (80-99) Mean Corpuscular Hemoglobin 32.0 PG (27.0-31.0) H Mean Corpuscular Hemoglobin Concent 35.2 G/DL (32.0-36.0) Red Cell Distribution Width 10.4 % (11.6-14.8) L Platelet Count 276 K/UL (150-450) Mean Platelet Volume 7.5 FL (6.5-10.1) Neutrophils (%) (Auto) 80.6 % (45.0-75.0) H Lymphocytes (%) (Auto) 9.8 % (20.0-45.0) L Monocytes (%) (Auto) 8.8 % (1.0-10.0) Eosinophils (%) (Auto) 0.3 % (0.0-3.0) Basophils (%) (Auto) 0.5 % (0.0-2.0) Sodium Level 138 MMOL/L (136-145) Potassium Level 3.6 MMOL/L (3.5-5.1) Chloride Level 101 MMOL/L (98-107) Carbon Dioxide Level 32 MMOL/L (21-32) Anion Gap 6 mmol/L (5-15) Blood Urea Nitrogen 8 mg/dL (7-18) Creatinine 1.4 MG/DL (0.55-1.30) H Estimat Glomerular Filtration Rate 59.5 mL/min (>60) Glucose Level 103 MG/DL (74-106) Calcium Level 8.7 MG/DL (8.5-10.1) Total Bilirubin 1.0 MG/DL (0.2-1.0) Aspartate Amino Transf (AST/SGOT) 26 U/L (15-37) Alanine Aminotransferase (ALT/SGPT) 66 U/L (12-78) Alkaline Phosphatase 89 U/L (46-116) Total Protein 7.0 G/DL (6.4-8.2) Albumin 2.7 G/DL (3.4-5.0) L Globulin 4.3 g/dL Albumin/Globulin Ratio 0.6 (1.0-2.7) L Current Medications Medications (Trade) Dose Ordered Sig/Leslie Route PRN Reason Start Time Stop Time Status Last Admin Dose Admin Acetaminophen (Tylenol) 650 mg Q4H PRN ORAL Mild Pain/Temp > 100.5 12/19/18 20:15 01/18/19 20:14 12/20/18 20:23 Dextrose/Sodium Chloride 1,000 ml @ 150 mls/hr Q6H40M IV 12/21/18 19:45 01/20/19 19:44 Heparin Sodium (Porcine) (Heparin 5000 units/ml) 5,000 units EVERY 12 HOURS SUBQ 12/19/18 21:00 01/18/19 20:59 12/21/18 09:06 Iohexol (OMNIPAQUE-300 100ml) 100 ml NOW PRN INJ Radiology Procedure 12/19/18 14:15 12/21/18 14:10 Lactobacillus Acidophilus (Culturelle) 1 tab THREE TIMES A DAY ORAL 12/21/18 09:00 01/20/19 08:59 12/21/18 12:27 Morphine Sulfate (Morphine Sulfate) 1 mg Q4H PRN IVP For Pain 12/19/18 19:45 12/26/18 19:44 12/19/18 23:40 Multivitamins (Multivitamins) 1 tab DAILY ORAL 12/21/18 09:00 01/20/19 08:59 12/21/18 09:05 Ondansetron HCl (Zofran) 4 mg Q6H PRN IVP Nausea & Vomiting 12/19/18 19:45 01/18/19 19:44 Pantoprazole (Protonix) 40 mg DAILY IVP 12/20/18 09:00 01/19/19 08:59 12/21/18 09:05 Piperacillin Sod/ Tazobactam Sod 3.375 gm/Sodium Chloride 110 ml @ 27.5 mls/hr EVERY 8 HOURS IVPB 12/19/18 22:00 12/24/18 21:59 12/21/18 13:06 Julian Florentino MD Dec 21, 2018 13:23
--- NOTE | 2018-12-21 14:35 | NUR ---
*-* INSURANCE *-* ALL CLINICALS AND REVIEWS HAVE BEEN FAXED TO: [facility]:SHELIA Sierra: [phone]
--- NOTE | 2018-12-21 14:39 | NUR ---
CASE MANAGEMENT:REVIEW 12/21/18 SI: ABDOMINAL ABSCESS. PERF APPY 98.4 77 20 107/61 98% ON RA WBC+13.4 CR+1.4 IS: [id number] IV ZOSYN Q8HRS HEPARIN SQ Q12 LACTOBACILLUS PO TID : MED/SURG STATUS 4 EAST PLAN: NON OPERATIVE MANAGEMENT WITH IV ANTIBIOTICS CONTINUE ANTIBIOTICS UNTIL PAIN RESOLVED AND LEUKOCYTOSIS IS NORMAL
--- NOTE | 2018-12-21 15:41 | Surgery Progress Note ---
Surgery Progress Note Subjective Symptoms: improved, tolerating diet, voiding well, passing flatus, BM, pain decreased Objective Last 24 Hour Vital Signs Date Time Temp Pulse Resp B/P (MAP) Pulse Ox O2 Delivery O2 Flow Rate FiO2 12/21/18 09:00 Room Air 12/21/18 08:00 98.4 77 20 107/61 (76) 98 12/21/18 04:00 98.0 75 19 102/58 (73) 97 75 12/21/18 00:52 99.1 74 21 110/75 (87) 97 12/20/18 21:16 Room Air 12/20/18 20:55 100.0 12/20/18 20:00 102.6 86 19 100/60 (73) 98 12/20/18 16:00 99.1 89 18 101/58 (72) 96 I&O Intake and Output 12/20/18 12/21/18 18:59 06:59 Intake Total 1200.0 ml 27.5 ml Output Total 750 ml Balance 450.0 ml 27.5 ml Intake Oral 480 ml IV Total 720.0 ml 27.5 ml Output Urine Total 750 ml # Voids 2 Cardiovascular: RSR Respiratory: clear Abdomen: soft, flat, non-tender, present bowel sounds, non-distended Extremities: no edema, no tenderness, no cyanosis Laboratory Tests Test 12/21/18 06:40 White Blood Count 13.4 K/UL (4.8-10.8) H Red Blood Count 4.46 M/UL (4.70-6.10) L Hemoglobin 14.3 G/DL (14.2-18.0) Hematocrit 40.6 % (42.0-52.0) L Mean Corpuscular Volume 91 FL (80-99) Mean Corpuscular Hemoglobin 32.0 PG (27.0-31.0) H Mean Corpuscular Hemoglobin Concent 35.2 G/DL (32.0-36.0) Red Cell Distribution Width 10.4 % (11.6-14.8) L Platelet Count 276 K/UL (150-450) Mean Platelet Volume 7.5 FL (6.5-10.1) Neutrophils (%) (Auto) 80.6 % (45.0-75.0) H Lymphocytes (%) (Auto) 9.8 % (20.0-45.0) L Monocytes (%) (Auto) 8.8 % (1.0-10.0) Eosinophils (%) (Auto) 0.3 % (0.0-3.0) Basophils (%) (Auto) 0.5 % (0.0-2.0) Sodium Level 138 MMOL/L (136-145) Potassium Level 3.6 MMOL/L (3.5-5.1) Chloride Level 101 MMOL/L (98-107) Carbon Dioxide Level 32 MMOL/L (21-32) Anion Gap 6 mmol/L (5-15) Blood Urea Nitrogen 8 mg/dL (7-18) Creatinine 1.4 MG/DL (0.55-1.30) H Estimat Glomerular Filtration Rate 59.5 mL/min (>60) Glucose Level 103 MG/DL (74-106) Calcium Level 8.7 MG/DL (8.5-10.1) Total Bilirubin 1.0 MG/DL (0.2-1.0) Aspartate Amino Transf (AST/SGOT) 26 U/L (15-37) Alanine Aminotransferase (ALT/SGPT) 66 U/L (12-78) Alkaline Phosphatase 89 U/L (46-116) Total Protein 7.0 G/DL (6.4-8.2) Albumin 2.7 G/DL (3.4-5.0) L Globulin 4.3 g/dL Albumin/Globulin Ratio 0.6 (1.0-2.7) L Plan Problems: (1) Perforated appendicitis Assessment & Plan: This is a 28-year-old male with 2-week of right lower quadrant abdominal pain who was noted to have focal right lower quadrant tenderness with rebound and guarding on my examination. Leukocytosis 20,000. CT scan with complex multiloculated fluid collection abscess in the right lower quadrant indistinct from the cecum. Likely her presenting acute perforated appendicitis with abscess. Given the duration and above CT findings and high suspicion for perforated acute appendicitis. At this time would recommend nonoperative management with IV antibiotics. Will discuss with radiology for potential catheter drainage if possible. - non favorable Okay for diet from surgical standpoint will follow with exam, investigation, recommendations. exam and labs improving Continue with IV antibiotics until pain resolved and leukocytosis normal. Thank you (2) Abdominal abscess Assessment & Plan: In the right lower quadrant of the abdomen, there is a multicystic partially enhancing mass or fluid collection. This is suspicious for a multiloculated abscess and is inseparable from the cecum. The hepatic flexure and transverse colon are identified but in the location of the multicystic mass the cecum is difficult to distinguish and may be collapsed or may be a part of this mass. Evaluation with oral contrast is recommended and repeat CT suggested. Surrounding fatty soft tissue stranding indicative of inflammation noted. There is some perinephric fluid present. Overall the area of the multiloculated abscess versus mass measures about 9 to 10 cm in the transverse axis and 13 cm craniocaudal. One consideration is a perforated appendicitis. Mild basilar reticulation noted consistent with atelectasis. The liver is enlarged measuring 19 cm. Spleen is enlarged measuring 15 cm. No evidence of bowel obstruction. Bladder is unremarkable. There is a small amount of pelvic free fluid. Gallbladder is unremarkable. There is no hydronephrosis. Elmer Adan Dec 21, 2018 15:41
[2018-12-21 16:00] VITALS: BP 121/63
[2018-12-21] MEDS ORDERED: Albuterol/Ipratropium 3ml neb HHN PRN (16:30)
--- NOTE | 2018-12-21 16:30 | NUR ---
NURSE NOTES: Patient provided with Incentive Spirometer; bed side teaching given to patient; will keep monitoring.
--- NOTE | 2018-12-21 19:26 | NUR ---
HAND-OFF: Report given to ROCIO Da Silva.
[2018-12-21 20:00] VITALS: BP 108/60
--- NOTE | 2018-12-21 20:25 | Pulmonology Progress Note ---
Assessment/Plan Assessment/Plan Pulmonary Consultation HPI: Patient is a 28-year-old male admitted with multicystic right lower quadrant collection, he complained of abdominal pain for approximately 3 weeks , no fever or chills but notes intermittent sweats. Denies chest pain or shortness of breath, has had a non productive cough. Previously noted small non incarcerated hernia in the right lower quadrant by ultrasound. On SQ Heparin PMH: Denies, no h/o Asthma PSH: Denies Allergies: No Known Allergies Social Hx: Denies drug or alcohol abuse All Other Systems: negative except mentioned in HPI Physical Exam General: Awake and alert, no acute distress HEENT: NC/AT. EOMI. Cardiovascular: RRR. S1 and S2 normal. No murmur appreciated Chest: Normal work of breathing. No cough, wheezing or crackles Abdomen: Abdomen is soft, nondistended. Tenderness palpation of the right lower quadrant near the anterior iliac crest. No rebound. periumbilical tenderness or suprapubic tenderness.No masses palpable Skin: Intact. No abrasions, laceration or rash over the exposed skin Extremities: Normal tone and bulk. Moving all extremities. No obvious deformity. No edema Neuro: Awake and alert. Mentating appropriately. Impression: Abdominal abscess Mild cough PLan Continue Antibiotics CXR PPX PRN O2 HHN PRN Laboratory Tests Test 12/19/18 14:30 White Blood Count 20.3 K/UL (4.8-10.8) H Red Blood Count 4.61 M/UL (4.70-6.10) L Hemoglobin 14.8 G/DL (14.2-18.0) Hematocrit 42.8 % (42.0-52.0) Mean Corpuscular Volume 93 FL (80-99) Mean Corpuscular Hemoglobin 32.0 PG (27.0-31.0) H Mean Corpuscular Hemoglobin Concent 34.5 G/DL (32.0-36.0) Red Cell Distribution Width 10.1 % (11.6-14.8) L Platelet Count 260 K/UL (150-450) Mean Platelet Volume 7.4 FL (6.5-10.1) Neutrophils (%) (Auto) % (45.0-75.0) Lymphocytes (%) (Auto) % (20.0-45.0) Monocytes (%) (Auto) % (1.0-10.0) Eosinophils (%) (Auto) % (0.0-3.0) Basophils (%) (Auto) % (0.0-2.0) Neutrophils % (Manual) Pending Lymphocytes % (Manual) Pending Platelet Estimate Pending Platelet Morphology Pending Prothrombin Time 12.6 SEC (9.30-11.50) H Prothrombin Time INR 1.2 (0.9-1.1) H PTT 30 SEC (23-33) Urine Color Yellow Urine Appearance Clear Urine pH 6.5 (4.5-8.0) Urine Specific [place] 1.005 (1.005-1.035) Urine Protein 2+ (NEGATIVE) H Urine Glucose (UA) Negative (NEGATIVE) Urine Ketones 1+ (NEGATIVE) H Urine Blood Negative (NEGATIVE) Urine Nitrite Negative (NEGATIVE) Urine Bilirubin Negative (NEGATIVE) Urine Urobilinogen Normal MG/DL (0.0-1.0) Urine Leukocyte Esterase Negative (NEGATIVE) Urine RBC 0 /HPF (0 - 0) Urine WBC 0-2 /HPF (0 - 0) Urine Squamous Epithelial Cells Few /LPF (NONE/OCC) Urine Bacteria Occasional /HPF (NONE) Urine Mucus Few /LPF (NONE/OCC) H Sodium Level 135 MMOL/L (136-145) L Potassium Level 3.8 MMOL/L (3.5-5.1) Chloride Level 99 MMOL/L (98-107) Carbon Dioxide Level 31 MMOL/L (21-32) Anion Gap 5 mmol/L (5-15) Blood Urea Nitrogen 9 mg/dL (7-18) Creatinine 1.3 MG/DL (0.55-1.30) Estimate Glomerular Filtration Rate > 60 mL/min (>60) Glucose Level 105 MG/DL (74-106) Calcium Level 9.1 MG/DL (8.5-10.1) Total Bilirubin 1.4 MG/DL (0.2-1.0) H Direct Bilirubin 0.3 MG/DL (0.0-0.3) Aspartate Amino Transferase (AST) 29 U/L (15-37) Alanine Aminotransferase (ALT) 64 U/L (12-78) Alkaline Phosphatase 96 U/L (46-116) Total Protein 7.5 G/DL (6.4-8.2) Albumin 3.2 G/DL (3.4-5.0) L Globulin 4.3 g/dL Albumin/Globulin Ratio 0.7 (1.0-2.7) L Lipase 89 U/L (73-393) Abdominal CT scan: right lower quadrant multicystic intra-abdominal abscess . Subjective ROS Limited/Unobtainable: No Allergies: Coded Allergies: No Known Allergies (Unverified , 12/19/18) Objective Last 24 Hour Vital Signs Date Time Temp Pulse Resp B/P (MAP) Pulse Ox O2 Delivery O2 Flow Rate FiO2 12/21/18 20:00 97.3 76 18 108/60 (76) 96 12/21/18 17:59 101.8 12/21/18 16:00 101.8 82 18 121/63 (82) 97 12/21/18 09:00 Room Air 12/21/18 08:00 98.4 77 20 107/61 (76) 98 12/21/18 04:00 98.0 75 19 102/58 (73) 97 75 12/21/18 00:52 99.1 74 21 110/75 (87) 97 12/20/18 21:16 Room Air Intake and Output 12/20/18 12/21/18 19:00 07:00 Intake Total 1200.0 ml 27.5 ml Output Total 750 ml Balance 450.0 ml 27.5 ml Intake Oral 480 ml IV Total 720.0 ml 27.5 ml Output Urine Total 750 ml # Voids 2 Laboratory Tests 12/21/18 06:40: White Blood Count 13.4H, Red Blood Count 4.46L, Hemoglobin 14.3, Hematocrit 40.6L, Mean Corpuscular Volume 91, Mean Corpuscular Hemoglobin 32.0H, Mean Corpuscular Hemoglobin Concent 35.2, Red Cell Distribution Width 10.4L, Platelet Count 276, Mean Platelet Volume 7.5, Neutrophils (%) (Auto) 80.6H, Lymphocytes (%) (Auto) 9.8L, Monocytes (%) (Auto) 8.8, Eosinophils (%) (Auto) 0.3, Basophils (%) (Auto) 0.5, Sodium Level 138, Potassium Level 3.6, Chloride Level 101, Carbon Dioxide Level 32, Anion Gap 6, Blood Urea Nitrogen 8, Creatinine 1.4H, Estimat Glomerular Filtration Rate 59.5, Glucose Level 103, Calcium Level 8.7, Total Bilirubin 1.0, Aspartate Amino Transf (AST/SGOT) 26, Alanine Aminotransferase (ALT/SGPT) 66, Alkaline Phosphatase 89, Total Protein 7.0, Albumin 2.7L, Globulin 4.3, Albumin/Globulin Ratio 0.6L Current Medications Medications (Trade) Dose Ordered Sig/Leslie Route PRN Reason Start Time Stop Time Status Last Admin Dose Admin Acetaminophen (Tylenol) 650 mg Q4H PRN ORAL Mild Pain/Temp > 100.5 12/19/18 20:15 01/18/19 20:14 12/21/18 17:29 Albuterol/ Ipratropium (Albuterol/ Ipratropium) 3 ml Q6H PRN HHN Shortness of Breath 12/21/18 16:30 12/26/18 16:29 Dextrose/Sodium Chloride 1,000 ml @ 150 mls/hr Q6H40M IV 12/21/18 19:45 01/20/19 19:44 12/21/18 17:28 Heparin Sodium (Porcine) (Heparin 5000 units/ml) 5,000 units EVERY 12 HOURS SUBQ 12/19/18 21:00 01/18/19 20:59 12/21/18 09:06 Lactobacillus Acidophilus (Culturelle) 1 tab THREE TIMES A DAY ORAL 12/21/18 09:00 01/20/19 08:59 12/21/18 17:28 Morphine Sulfate (Morphine Sulfate) 1 mg Q4H PRN IVP For Pain 12/19/18 19:45 12/26/18 19:44 12/19/18 23:40 Multivitamins (Multivitamins) 1 tab DAILY ORAL 12/21/18 09:00 01/20/19 08:59 12/21/18 09:05 Ondansetron HCl (Zofran) 4 mg Q6H PRN IVP Nausea & Vomiting 12/19/18 19:45 01/18/19 19:44 Pantoprazole (Protonix) 40 mg DAILY IVP 12/20/18 09:00 01/19/19 08:59 12/21/18 09:05 Piperacillin Sod/ Tazobactam Sod 3.375 gm/Sodium Chloride 110 ml @ 27.5 mls/hr EVERY 8 HOURS IVPB 12/19/18 22:00 12/24/18 21:59 12/21/18 13:06 Neto Koo MD Dec 21, 2018 20:25
--- NOTE | 2018-12-21 22:19 | NUR ---
NURSE NOTES: Patient in bed, awake, alert and verbally responsive. Able to make needs known. Respiration is even and unlabored. No complaint of pain or discomfort noted. Skin is warm and dry to touch. Abdomen is soft and non distended. IV site noted, iv fluid is infusing as ordered. Bed in low and locked position. Call light is at bedside. will continue plan of care.
[2018-12-22 04:00] VITALS: BP 106/55
[2018-12-22] MEDS: D5NS 1,000 ML IV SCH ×3 (05:28→10:52)
[2018-12-22] MEDS: Piperacillin/Tazobactam 3.375 GM in NS 110 ML IVPB SCH ×3 (05:28→21:37)
--- NOTE | 2018-12-22 07:18 | NUR ---
HAND-OFF: Report given to Sophie Lee.
--- NOTE | 2018-12-22 07:55 | NUR ---
NURSE NOTES: PT AXOX4, AMBULATORY WITH STEADY GAIT. DENIES N/V. STATES PAIN IS MINIMAL RLQ, 3/10. PT STATES IT IS DISCOMFORT, NOT PAIN AND DOES NOT WANT PAIN MEDICATION AT THIS TIME. CALL LIGHT WITHIN REACH. WILL CONTINUE TO MONITOR.
[2018-12-22 08:00] VITALS: BP 101/63
[2018-12-22 08:00] LABS: BASOPHILS % (AUTO) 0.4 % (0.0-2.0); EOSINOPHILS % (AUTO) 0.4 % (0.0-3.0); HEMATOCRIT 39.8 % (42.0-52.0); HEMOGLOBIN 13.8 G/DL (14.2-18.0); LYMPHOCYTES % (AUTO) 11.3 % (20.0-45.0); MEAN CORPUSCULAR VOLUME 92 FL (80-99); MONOCYTES % (AUTO) 8.8 % (1.0-10.0); NEUTROPHILS % (AUTO) 79.1 % (45.0-75.0); PLATELET COUNT 283 K/UL (150-450); RED BLOOD COUNT 4.31 M/UL (4.70-6.10); RED CELL DISTRIBUTION WIDTH 10.3 % (11.6-14.8); WHITE BLOOD COUNT 13.1 K/UL (4.8-10.8)
[2018-12-22 08:28] LABS: ALANINE AMINOTRANSFERASE 77 U/L (12-78); ALBUMIN 2.7 G/DL (3.4-5.0); ALBUMIN/GLOBULIN RATIO 0.6 (1.0-2.7); ALKALINE PHOSPHATASE 91 U/L (46-116); ANION GAP 9 mmol/L (5-15); ASPARTATE AMINO TRANSFERASE 32 U/L (15-37); BILIRUBIN,TOTAL 1.1 MG/DL (0.2-1.0); BLOOD UREA NITROGEN 10 mg/dL (7-18); CALCIUM 9.3 MG/DL (8.5-10.1); CARBON DIOXIDE 30 MMOL/L (21-32); CHLORIDE 100 MMOL/L (98-107); CREATININE 1.3 MG/DL (0.55-1.30); POTASSIUM 3.8 MMOL/L (3.5-5.1); SODIUM 138 MMOL/L (136-145)
[2018-12-22 08:49] LABS: BILIRUBIN,DIRECT 0.3 MG/DL (0.0-0.3)
--- NOTE | 2018-12-22 08:58 | Diagnostic Imaging Report ---
EXAM: XR Chest, 1 View CLINICAL HISTORY: COUGH TECHNIQUE: Frontal view of the chest. COMPARISON: No relevant prior studies available. FINDINGS: Lungs: Unremarkable. No consolidation. Pleural space: Unremarkable. No pneumothorax. Heart: Unremarkable. No cardiomegaly. Mediastinum: Unremarkable. Bones joints: Unremarkable. IMPRESSION: No evidence of acute pulmonary disease.
[2018-12-22] MEDS: Lactobacillus-GG tablet ORAL SCH ×3 (09:25→17:13)
[2018-12-22] MEDS: Pantoprazole Inj IVP SCH (09:26)
[2018-12-22] MEDS: Heparin 5000 units/ml inj SUBQ SCH ×2 (09:27→21:39)
--- NOTE | 2018-12-22 09:47 | General Progress Note ---
Assessment/Plan Problem List: (1) Abdominal abscess SNOMED: 47694965 (2) Perforated appendicitis ICD Codes: K35.32 - Acute appendicitis with perforation and localized peritonitis, without abscess SNOMED: 71169633 Status: stable, progressing Assessment/Plan: ivf decreased iv abx per ID monitor labs/renal fxn pain rx poc per surgery Subjective Constitutional: Reports: fever, malaise HEENT: Reports: no symptoms Cardiovascular: Reports: no symptoms Respiratory: Reports: no symptoms Gastrointestinal/Abdominal: Reports: abdominal pain Genitourinary: Reports: no symptoms Neurologic/Psychiatric: Reports: no symptoms Endocrine: Reports: no symptoms Hematologic/Lymphatic: Reports: no symptoms Allergies: Coded Allergies: No Known Allergies (Unverified , 12/19/18) All Systems: reviewed and negative except above Subjective no events. ID and surgery noted. feels "weak." decreased abd pain and fevers. Wbc stable at 13k. tolerating po Objective Last 24 Hour Vital Signs Date Time Temp Pulse Resp B/P (MAP) Pulse Ox O2 Delivery O2 Flow Rate FiO2 12/22/18 04:00 99.1 76 20 106/55 (72) 98 12/21/18 21:00 Room Air 12/21/18 20:00 97.3 76 18 108/60 (76) 96 12/21/18 17:59 101.8 12/21/18 16:00 101.8 82 18 121/63 (82) 97 Intake and Output 12/21/18 12/22/18 19:00 07:00 Intake Total 915.0 ml 2637.5 ml Output Total 2 ml Balance 913.0 ml 2637.5 ml Intake Oral 600 ml 1500 ml IV Total 315.0 ml 1137.5 ml Stool Total 2 ml # Voids 3 8 # Bowel Movements 2 Laboratory Tests 12/22/18 06:35: White Blood Count 13.1H, Red Blood Count 4.31L, Hemoglobin 13.8L, Hematocrit 39.8L, Mean Corpuscular Volume 92, Mean Corpuscular Hemoglobin 32.0H, Mean Corpuscular Hemoglobin Concent 34.6, Red Cell Distribution Width 10.3L, Platelet Count 283, Mean Platelet Volume 7.6, Neutrophils (%) (Auto) 79.1H, Lymphocytes (%) (Auto) 11.3L, Monocytes (%) (Auto) 8.8, Eosinophils (%) (Auto) 0.4, Basophils (%) (Auto) 0.4, Sodium Level 138, Potassium Level 3.8, Chloride Level 100, Carbon Dioxide Level 30, Anion Gap 9, Blood Urea Nitrogen 10, Creatinine 1.3, Estimat Glomerular Filtration Rate > 60, Glucose Level 96, Calcium Level 9.3, Total Bilirubin 1.1H, Direct Bilirubin 0.3, Aspartate Amino Transf (AST/SGOT) 32, Alanine Aminotransferase (ALT/SGPT) 77, Alkaline Phosphatase 91, Total Protein 7.0, Albumin 2.7L, Globulin 4.3, Albumin/Globulin Ratio 0.6L Height (Feet): 6 Height (Inches): 4.00 Weight (Pounds): 220 General Appearance: WD/WN, alert Neck: supple Cardiovascular: regular rhythm Respiratory/Chest: lungs clear Abdomen: normal bowel sounds, non tender, soft, no organomegaly, no mass Edema: no edema noted Arm (L), no edema noted Arm (R), no edema noted Leg (L), no edema noted Leg (R), no edema noted Pedal (L), no edema noted Pedal (R), no edema noted Generalized Cedrick Michelle MD Dec 22, 2018 09:47
--- NOTE | 2018-12-22 11:29 | Surgery Progress Note ---
Surgery Progress Note Subjective Additional Comments afebrile, HD stable leukocytosis stable at 13k no n/v//fc Objective Last 24 Hour Vital Signs Date Time Temp Pulse Resp B/P (MAP) Pulse Ox O2 Delivery O2 Flow Rate FiO2 12/22/18 09:00 Room Air 12/22/18 08:00 98.8 87 18 101/63 (76) 97 12/22/18 04:00 99.1 76 20 106/55 (72) 98 12/21/18 21:00 Room Air 12/21/18 20:00 97.3 76 18 108/60 (76) 96 12/21/18 17:59 101.8 12/21/18 16:00 101.8 82 18 121/63 (82) 97 I&O Intake and Output 12/21/18 12/22/18 19:00 07:00 Intake Total 915.0 ml 2637.5 ml Output Total 2 ml Balance 913.0 ml 2637.5 ml Intake Oral 600 ml 1500 ml IV Total 315.0 ml 1137.5 ml Stool Total 2 ml # Voids 3 8 # Bowel Movements 2 Cardiovascular: RSR Respiratory: clear Abdomen: soft, flat, non-tender, present bowel sounds Extremities: no edema, no tenderness, no cyanosis Laboratory Tests Test 12/22/18 06:35 White Blood Count 13.1 K/UL (4.8-10.8) H Red Blood Count 4.31 M/UL (4.70-6.10) L Hemoglobin 13.8 G/DL (14.2-18.0) L Hematocrit 39.8 % (42.0-52.0) L Mean Corpuscular Volume 92 FL (80-99) Mean Corpuscular Hemoglobin 32.0 PG (27.0-31.0) H Mean Corpuscular Hemoglobin Concent 34.6 G/DL (32.0-36.0) Red Cell Distribution Width 10.3 % (11.6-14.8) L Platelet Count 283 K/UL (150-450) Mean Platelet Volume 7.6 FL (6.5-10.1) Neutrophils (%) (Auto) 79.1 % (45.0-75.0) H Lymphocytes (%) (Auto) 11.3 % (20.0-45.0) L Monocytes (%) (Auto) 8.8 % (1.0-10.0) Eosinophils (%) (Auto) 0.4 % (0.0-3.0) Basophils (%) (Auto) 0.4 % (0.0-2.0) Sodium Level 138 MMOL/L (136-145) Potassium Level 3.8 MMOL/L (3.5-5.1) Chloride Level 100 MMOL/L (98-107) Carbon Dioxide Level 30 MMOL/L (21-32) Anion Gap 9 mmol/L (5-15) Blood Urea Nitrogen 10 mg/dL (7-18) Creatinine 1.3 MG/DL (0.55-1.30) Estimat Glomerular Filtration Rate > 60 mL/min (>60) Glucose Level 96 MG/DL (74-106) Calcium Level 9.3 MG/DL (8.5-10.1) Total Bilirubin 1.1 MG/DL (0.2-1.0) H Direct Bilirubin 0.3 MG/DL (0.0-0.3) Aspartate Amino Transf (AST/SGOT) 32 U/L (15-37) Alanine Aminotransferase (ALT/SGPT) 77 U/L (12-78) Alkaline Phosphatase 91 U/L (46-116) Total Protein 7.0 G/DL (6.4-8.2) Albumin 2.7 G/DL (3.4-5.0) L Globulin 4.3 g/dL Albumin/Globulin Ratio 0.6 (1.0-2.7) L Plan Problems: (1) Perforated appendicitis Assessment & Plan: This is a 28-year-old male with 2-week of right lower quadrant abdominal pain who was noted to have focal right lower quadrant tenderness with rebound and guarding on my examination. Leukocytosis 20,000. CT scan with complex multiloculated fluid collection abscess in the right lower quadrant indistinct from the cecum. Likely her presenting acute perforated appendicitis with abscess. Given the duration and above CT findings and high suspicion for perforated acute appendicitis. At this time would recommend nonoperative management with IV antibiotics. Will discuss with radiology for potential catheter drainage if possible. - non favorable Okay for diet from surgical standpoint will follow with exam, investigation, recommendations. exam and labs improving Continue with IV antibiotics until pain resolved and leukocytosis normal. Thank you (2) Abdominal abscess Assessment & Plan: In the right lower quadrant of the abdomen, there is a multicystic partially enhancing mass or fluid collection. This is suspicious for a multiloculated abscess and is inseparable from the cecum. The hepatic flexure and transverse colon are identified but in the location of the multicystic mass the cecum is difficult to distinguish and may be collapsed or may be a part of this mass. Evaluation with oral contrast is recommended and repeat CT suggested. Surrounding fatty soft tissue stranding indicative of inflammation noted. There is some perinephric fluid present. Overall the area of the multiloculated abscess versus mass measures about 9 to 10 cm in the transverse axis and 13 cm craniocaudal. One consideration is a perforated appendicitis. Mild basilar reticulation noted consistent with atelectasis. The liver is enlarged measuring 19 cm. Spleen is enlarged measuring 15 cm. No evidence of bowel obstruction. Bladder is unremarkable. There is a small amount of pelvic free fluid. Gallbladder is unremarkable. There is no hydronephrosis. Elmer Adan Dec 22, 2018 11:29
--- NOTE | 2018-12-22 11:47 | NUR ---
CASE MANAGEMENT: REVIEW SI: ABDOMINAL ABSCESS . PERFORATED APPENDICITIS T 99.1 HR 76 RR 20 BP 106/55 SAT 97% ROOM AIR WBC 13.1 H/H 13.8/39.8 IS: D5 NS IVF @ 50ML/HR ZOSYN IV Q8HR HEPARIN SUBQ Q12 LACTOBACILLUS PO TID MED/SURG STATUS DCP: PATIENT IS FROM HOME
[2018-12-22 11:59] VITALS: BP 109/62
[2018-12-22 16:00] VITALS: BP 115/68
--- NOTE | 2018-12-22 17:26 | Pulmonology Progress Note ---
Assessment/Plan Assessment/Plan Pulmonary Progress Note HPI: Patient is a 28-year-old male admitted with multicystic right lower quadrant collection, he complained of abdominal pain for approximately 3 weeks , no fever or chills but notes intermittent sweats. Denies chest pain or shortness of breath, has had a non productive cough. Previously noted small non incarcerated hernia in the right lower quadrant by ultrasound. No new complaints On SQ Heparin PMH: Denies, no h/o Asthma PSH: Denies Allergies: No Known Allergies Social Hx: Denies drug or alcohol abuse All Other Systems: negative except mentioned in HPI Physical Exam General: Awake and alert, no acute distress HEENT: NC/AT. EOMI. Cardiovascular: RRR. S1 and S2 normal. No murmur appreciated Chest: Normal work of breathing. No cough, wheezing or crackles Abdomen: Abdomen is soft, nondistended. Tenderness palpation of the right lower quadrant near the anterior iliac crest. No rebound. periumbilical tenderness or suprapubic tenderness.No masses palpable Skin: Intact. No abrasions, laceration or rash over the exposed skin Extremities: Normal tone and bulk. Moving all extremities. No obvious deformity. No edema Neuro: Awake and alert. Mentating appropriately. Impression: Abdominal abscess Mild cough PLan Continue Antibiotics CXR PPX PRN O2 HHN PRN Laboratory Tests Noted Test 12/19/18 14:30 White Blood Count 20.3 K/UL (4.8-10.8) H Red Blood Count 4.61 M/UL (4.70-6.10) L Hemoglobin 14.8 G/DL (14.2-18.0) Hematocrit 42.8 % (42.0-52.0) Mean Corpuscular Volume 93 FL (80-99) Mean Corpuscular Hemoglobin 32.0 PG (27.0-31.0) H Mean Corpuscular Hemoglobin Concent 34.5 G/DL (32.0-36.0) Red Cell Distribution Width 10.1 % (11.6-14.8) L Platelet Count 260 K/UL (150-450) Mean Platelet Volume 7.4 FL (6.5-10.1) Neutrophils (%) (Auto) % (45.0-75.0) Lymphocytes (%) (Auto) % (20.0-45.0) Monocytes (%) (Auto) % (1.0-10.0) Eosinophils (%) (Auto) % (0.0-3.0) Basophils (%) (Auto) % (0.0-2.0) Neutrophils % (Manual) Pending Lymphocytes % (Manual) Pending Platelet Estimate Pending Platelet Morphology Pending Prothrombin Time 12.6 SEC (9.30-11.50) H Prothrombin Time INR 1.2 (0.9-1.1) H PTT 30 SEC (23-33) Urine Color Yellow Urine Appearance Clear Urine pH 6.5 (4.5-8.0) Urine Specific [place] 1.005 (1.005-1.035) Urine Protein 2+ (NEGATIVE) H Urine Glucose (UA) Negative (NEGATIVE) Urine Ketones 1+ (NEGATIVE) H Urine Blood Negative (NEGATIVE) Urine Nitrite Negative (NEGATIVE) Urine Bilirubin Negative (NEGATIVE) Urine Urobilinogen Normal MG/DL (0.0-1.0) Urine Leukocyte Esterase Negative (NEGATIVE) Urine RBC 0 /HPF (0 - 0) Urine WBC 0-2 /HPF (0 - 0) Urine Squamous Epithelial Cells Few /LPF (NONE/OCC) Urine Bacteria Occasional /HPF (NONE) Urine Mucus Few /LPF (NONE/OCC) H Sodium Level 135 MMOL/L (136-145) L Potassium Level 3.8 MMOL/L (3.5-5.1) Chloride Level 99 MMOL/L (98-107) Carbon Dioxide Level 31 MMOL/L (21-32) Anion Gap 5 mmol/L (5-15) Blood Urea Nitrogen 9 mg/dL (7-18) Creatinine 1.3 MG/DL (0.55-1.30) Estimate Glomerular Filtration Rate > 60 mL/min (>60) Glucose Level 105 MG/DL (74-106) Calcium Level 9.1 MG/DL (8.5-10.1) Total Bilirubin 1.4 MG/DL (0.2-1.0) H Direct Bilirubin 0.3 MG/DL (0.0-0.3) Aspartate Amino Transferase (AST) 29 U/L (15-37) Alanine Aminotransferase (ALT) 64 U/L (12-78) Alkaline Phosphatase 96 U/L (46-116) Total Protein 7.5 G/DL (6.4-8.2) Albumin 3.2 G/DL (3.4-5.0) L Globulin 4.3 g/dL Albumin/Globulin Ratio 0.7 (1.0-2.7) L Lipase 89 U/L (73-393) Abdominal CT scan: right lower quadrant multicystic intra-abdominal abscess . Subjective ROS Limited/Unobtainable: No Allergies: Coded Allergies: No Known Allergies (Unverified , 12/19/18) Objective Last 24 Hour Vital Signs Date Time Temp Pulse Resp B/P (MAP) Pulse Ox O2 Delivery O2 Flow Rate FiO2 12/22/18 16:00 99.9 84 17 115/68 (84) 98 12/22/18 11:59 99.8 73 17 109/62 (78) 99 12/22/18 09:00 Room Air 12/22/18 08:00 98.8 87 18 101/63 (76) 97 12/22/18 04:00 99.1 76 20 106/55 (72) 98 12/21/18 21:00 Room Air 12/21/18 20:00 97.3 76 18 108/60 (76) 96 12/21/18 17:59 101.8 Intake and Output 12/21/18 12/22/18 18:59 06:59 Intake Total 915.0 ml 2637.5 ml Output Total 2 ml Balance 913.0 ml 2637.5 ml Intake Oral 600 ml 1500 ml IV Total 315.0 ml 1137.5 ml Stool Total 2 ml # Voids 3 8 # Bowel Movements 2 Microbiology Date/Time Source Procedure Growth Status 12/21/18 13:00 Stool Clostridium difficile Toxin Assay - Final Complete Laboratory Tests 12/22/18 06:35: White Blood Count 13.1H, Red Blood Count 4.31L, Hemoglobin 13.8L, Hematocrit 39.8L, Mean Corpuscular Volume 92, Mean Corpuscular Hemoglobin 32.0H, Mean Corpuscular Hemoglobin Concent 34.6, Red Cell Distribution Width 10.3L, Platelet Count 283, Mean Platelet Volume 7.6, Neutrophils (%) (Auto) 79.1H, Lymphocytes (%) (Auto) 11.3L, Monocytes (%) (Auto) 8.8, Eosinophils (%) (Auto) 0.4, Basophils (%) (Auto) 0.4, Sodium Level 138, Potassium Level 3.8, Chloride Level 100, Carbon Dioxide Level 30, Anion Gap 9, Blood Urea Nitrogen 10, Creatinine 1.3, Estimat Glomerular Filtration Rate > 60, Glucose Level 96, Calcium Level 9.3, Total Bilirubin 1.1H, Direct Bilirubin 0.3, Aspartate Amino Transf (AST/SGOT) 32, Alanine Aminotransferase (ALT/SGPT) 77, Alkaline Phosphatase 91, Total Protein 7.0, Albumin 2.7L, Globulin 4.3, Albumin/Globulin Ratio 0.6L Current Medications Medications (Trade) Dose Ordered Sig/Leslie Route PRN Reason Start Time Stop Time Status Last Admin Dose Admin Acetaminophen (Tylenol) 650 mg Q4H PRN ORAL Mild Pain/Temp > 100.5 12/19/18 20:15 01/18/19 20:14 12/21/18 17:29 Albuterol/ Ipratropium (Albuterol/ Ipratropium) 3 ml Q6H PRN HHN Shortness of Breath 12/21/18 16:30 12/26/18 16:29 Dextrose/Sodium Chloride 1,000 ml @ 50 mls/hr Q20H IV 12/22/18 10:00 01/21/19 09:59 12/22/18 10:52 Heparin Sodium (Porcine) (Heparin 5000 units/ml) 5,000 units EVERY 12 HOURS SUBQ 12/19/18 21:00 01/18/19 20:59 12/22/18 09:27 Lactobacillus Acidophilus (Culturelle) 1 tab THREE TIMES A DAY ORAL 12/21/18 09:00 01/20/19 08:59 12/22/18 17:13 Morphine Sulfate (Morphine Sulfate) 1 mg Q4H PRN IVP For Pain 12/19/18 19:45 12/26/18 19:44 12/19/18 23:40 Multivitamins (Multivitamins) 1 tab DAILY ORAL 12/21/18 09:00 01/20/19 08:59 12/22/18 09:25 Ondansetron HCl (Zofran) 4 mg Q6H PRN IVP Nausea & Vomiting 12/19/18 19:45 01/18/19 19:44 Pantoprazole (Protonix) 40 mg DAILY IVP 12/20/18 09:00 01/19/19 08:59 12/22/18 09:26 Piperacillin Sod/ Tazobactam Sod 3.375 gm/Sodium Chloride 110 ml @ 27.5 mls/hr EVERY 8 HOURS IVPB 12/19/18 22:00 12/24/18 21:59 12/22/18 13:09 Neto Koo MD Dec 22, 2018 17:26
--- NOTE | 2018-12-22 19:05 | NUR ---
HAND-OFF: Report given to DANG Abbasi RN.
[2018-12-22 20:00] VITALS: BP 115/60
--- NOTE | 2018-12-22 20:01 | NUR ---
NURSE NOTES: Patient in bed, awake, alert and oriented. Verbally able to make needs known. Breathing on room air. Respiration is even and unlabored. No complaint of pain or discomfort noted. Skin is warm and dry to touch. IV site on Right AC patent and intact. Bed in low and locked position. Call light within reach. Will continue to monitor for safety.
[2018-12-23] VITALS: BP 122/85
--- NOTE | 2018-12-23 01:41 | NUR ---
NURSE NOTES: Pt is in bed asleep. Evening meds administered as ordered and assisted as needed. Bed in low and locked position. Call light within reach. Will continue to monitor the pt.
[2018-12-23 04:00] VITALS: BP 120/94
[2018-12-23] MEDS: Piperacillin/Tazobactam 3.375 GM in NS 110 ML IVPB SCH ×3 (05:44→21:37)
[2018-12-23] MEDS: D5NS 1,000 ML IV SCH (05:44)
--- NOTE | 2018-12-23 07:32 | NUR ---
HAND-OFF: Report given to ROCIO Pérez.
[2018-12-23 08:00] VITALS: BP 119/77
[2018-12-23 08:12] LABS: BASOPHILS % (AUTO) 0.4 % (0.0-2.0); EOSINOPHILS % (AUTO) 0.5 % (0.0-3.0); HEMATOCRIT 41.3 % (42.0-52.0); HEMOGLOBIN 14.1 G/DL (14.2-18.0); LYMPHOCYTES % (AUTO) 11.3 % (20.0-45.0); MEAN CORPUSCULAR VOLUME 92 FL (80-99); MONOCYTES % (AUTO) 9.1 % (1.0-10.0); NEUTROPHILS % (AUTO) 78.8 % (45.0-75.0); PLATELET COUNT 299 K/UL (150-450); RED BLOOD COUNT 4.47 M/UL (4.70-6.10); RED CELL DISTRIBUTION WIDTH 10.4 % (11.6-14.8); WHITE BLOOD COUNT 14.3 K/UL (4.8-10.8)
[2018-12-23] MEDS: Lactobacillus-GG tablet ORAL SCH ×3 (08:29→17:15)
[2018-12-23] MEDS: Pantoprazole Inj IVP SCH (08:30)
[2018-12-23] MEDS: Heparin 5000 units/ml inj SUBQ SCH ×2 (08:46→21:37)
[2018-12-23 09:01] LABS: ALANINE AMINOTRANSFERASE 104 U/L (12-78); ALBUMIN 2.8 G/DL (3.4-5.0); ALBUMIN/GLOBULIN RATIO 0.6 (1.0-2.7); ALKALINE PHOSPHATASE 111 U/L (46-116); ANION GAP 9 mmol/L (5-15); ASPARTATE AMINO TRANSFERASE 41 U/L (15-37); BLOOD UREA NITROGEN 10 mg/dL (7-18); CARBON DIOXIDE 29 MMOL/L (21-32); CHLORIDE 99 MMOL/L (98-107); CREATININE 1.3 MG/DL (0.55-1.30); POTASSIUM 3.7 MMOL/L (3.5-5.1); SODIUM 137 MMOL/L (136-145)
--- NOTE | 2018-12-23 09:15 | General Progress Note ---
Assessment/Plan Problem List: (1) Abdominal abscess SNOMED: 06558222 (2) Perforated appendicitis ICD Codes: K35.32 - Acute appendicitis with perforation and localized peritonitis, without abscess SNOMED: 33127884 Status: stable, progressing Assessment/Plan: ivf decreased iv abx per ID monitor labs/renal fxn pain rx poc per surgery Subjective ROS Limited/Unobtainable: No Constitutional: Reports: malaise, weakness HEENT: Reports: no symptoms Cardiovascular: Reports: no symptoms Respiratory: Reports: no symptoms Gastrointestinal/Abdominal: Reports: no symptoms Genitourinary: Reports: no symptoms Neurologic/Psychiatric: Reports: no symptoms Endocrine: Reports: no symptoms Hematologic/Lymphatic: Reports: no symptoms Allergies: Coded Allergies: No Known Allergies (Unverified , 12/19/18) All Systems: reviewed and negative except above Subjective no events. ID and surgery noted. feels fine." decreased abd pain and fevers. Wbc stable at 14k. tolerating po walking Objective Last 24 Hour Vital Signs Date Time Temp Pulse Resp B/P (MAP) Pulse Ox O2 Delivery O2 Flow Rate FiO2 12/23/18 04:00 97.2 85 18 120/94 (103) 95 12/23/18 00:00 99.8 76 17 122/85 (97) 98 12/22/18 21:00 Room Air 12/22/18 20:00 98.6 87 17 115/60 (78) 97 12/22/18 16:00 99.9 84 17 115/68 (84) 98 12/22/18 11:59 99.8 73 17 109/62 (78) 99 Intake and Output 12/22/18 12/23/18 19:00 07:00 Intake Total 2242.5 ml 5337.5 ml Output Total 2 ml Balance 2242.5 ml 5335.5 ml Intake Oral 1500 ml IV Total 342.5 ml 1937.5 ml Other 1900 ml 1900 ml Stool Total 2 ml # Voids 2 # Bowel Movements 2 Laboratory Tests 12/23/18 06:47: White Blood Count 14.3H, Red Blood Count 4.47L, Hemoglobin 14.1L, Hematocrit 41.3L, Mean Corpuscular Volume 92, Mean Corpuscular Hemoglobin 31.7H, Mean Corpuscular Hemoglobin Concent 34.3, Red Cell Distribution Width 10.4L, Platelet Count 299, Mean Platelet Volume 7.8, Neutrophils (%) (Auto) 78.8H, Lymphocytes (%) (Auto) 11.3L, Monocytes (%) (Auto) 9.1, Eosinophils (%) (Auto) 0.5, Basophils (%) (Auto) 0.4, Sodium Level 137, Potassium Level 3.7, Chloride Level 99, Carbon Dioxide Level 29, Anion Gap 9, Blood Urea Nitrogen 10, Creatinine 1.3, Estimat Glomerular Filtration Rate > 60, Glucose Level 91, Calcium Level 9.0, Total Bilirubin 1.0, Aspartate Amino Transf (AST/SGOT) 41H, Alanine Aminotransferase (ALT/SGPT) 104H, Alkaline Phosphatase 111, Total Protein 7.3, Albumin 2.8L, Globulin 4.5, Albumin/Globulin Ratio 0.6L Height (Feet): 6 Height (Inches): 4.00 Weight (Pounds): 220 General Appearance: WD/WN, alert Cardiovascular: regular rhythm Respiratory/Chest: lungs clear Abdomen: normal bowel sounds, non tender, soft, no organomegaly Edema: no edema noted Arm (L), no edema noted Arm (R), no edema noted Leg (L), no edema noted Leg (R), no edema noted Pedal (L), no edema noted Pedal (R), no edema noted Generalized Cedrick Michelle MD Dec 23, 2018 09:15
[2018-12-23 12:00] VITALS: BP 132/65
--- NOTE | 2018-12-23 12:36 | Infectious Diseases Prog Note ---
Assessment/Plan Assessment/Plan IMPRESSION: Ruptured appendicitis intraperitoneal abscess. RECOMMENDATIONS: Continue Zosyn Plan by surgeon Subjective ROS Limited/Unobtainable: No HEENT: Reports: no symptoms Gastrointestinal/Abdominal: Reports: no symptoms Genitourinary: Reports: no symptoms Neurologic: Reports: no symptoms Allergies: Coded Allergies: No Known Allergies (Unverified , 12/19/18) Objective Vital Signs Last 24 Hour Vital Signs Date Time Temp Pulse Resp B/P (MAP) Pulse Ox O2 Delivery O2 Flow Rate FiO2 12/23/18 12:00 98.6 67 18 132/65 (87) 100 12/23/18 09:00 Room Air 12/23/18 08:00 98.7 80 18 119/77 (91) 98 12/23/18 04:00 97.2 85 18 120/94 (103) 95 12/23/18 00:00 99.8 76 17 122/85 (97) 98 12/22/18 21:00 Room Air 12/22/18 20:00 98.6 87 17 115/60 (78) 97 12/22/18 16:00 99.9 84 17 115/68 (84) 98 Height (Feet): 6 Height (Inches): 4.00 Weight (Pounds): 220 General Appearance: no acute distress HEENT: mucous membranes moist Respiratory/Chest: lungs clear Cardiovascular: normal rate Abdomen: soft, non tender Extremities: no edema Neurologic/Psychiatric: alert, oriented x 3, responsive Microbiology Date/Time Source Procedure Growth Status 12/21/18 13:00 Stool Clostridium difficile Toxin Assay - Final Complete Laboratory Tests Test 12/23/18 06:47 White Blood Count 14.3 K/UL (4.8-10.8) H Red Blood Count 4.47 M/UL (4.70-6.10) L Hemoglobin 14.1 G/DL (14.2-18.0) L Hematocrit 41.3 % (42.0-52.0) L Mean Corpuscular Volume 92 FL (80-99) Mean Corpuscular Hemoglobin 31.7 PG (27.0-31.0) H Mean Corpuscular Hemoglobin Concent 34.3 G/DL (32.0-36.0) Red Cell Distribution Width 10.4 % (11.6-14.8) L Platelet Count 299 K/UL (150-450) Mean Platelet Volume 7.8 FL (6.5-10.1) Neutrophils (%) (Auto) 78.8 % (45.0-75.0) H Lymphocytes (%) (Auto) 11.3 % (20.0-45.0) L Monocytes (%) (Auto) 9.1 % (1.0-10.0) Eosinophils (%) (Auto) 0.5 % (0.0-3.0) Basophils (%) (Auto) 0.4 % (0.0-2.0) Sodium Level 137 MMOL/L (136-145) Potassium Level 3.7 MMOL/L (3.5-5.1) Chloride Level 99 MMOL/L (98-107) Carbon Dioxide Level 29 MMOL/L (21-32) Anion Gap 9 mmol/L (5-15) Blood Urea Nitrogen 10 mg/dL (7-18) Creatinine 1.3 MG/DL (0.55-1.30) Estimat Glomerular Filtration Rate > 60 mL/min (>60) Glucose Level 91 MG/DL (74-106) Calcium Level 9.0 MG/DL (8.5-10.1) Total Bilirubin 1.0 MG/DL (0.2-1.0) Aspartate Amino Transf (AST/SGOT) 41 U/L (15-37) H Alanine Aminotransferase (ALT/SGPT) 104 U/L (12-78) H Alkaline Phosphatase 111 U/L (46-116) Total Protein 7.3 G/DL (6.4-8.2) Albumin 2.8 G/DL (3.4-5.0) L Globulin 4.5 g/dL Albumin/Globulin Ratio 0.6 (1.0-2.7) L Current Medications Medications (Trade) Dose Ordered Sig/Leslie Route PRN Reason Start Time Stop Time Status Last Admin Dose Admin Acetaminophen (Tylenol) 650 mg Q4H PRN ORAL Mild Pain/Temp > 100.5 12/19/18 20:15 01/18/19 20:14 12/21/18 17:29 Albuterol/ Ipratropium (Albuterol/ Ipratropium) 3 ml Q6H PRN HHN Shortness of Breath 12/21/18 16:30 12/26/18 16:29 Dextrose/Sodium Chloride 1,000 ml @ 50 mls/hr Q20H IV 12/22/18 10:00 01/21/19 09:59 12/23/18 05:44 Heparin Sodium (Porcine) (Heparin 5000 units/ml) 5,000 units EVERY 12 HOURS SUBQ 12/19/18 21:00 01/18/19 20:59 12/23/18 08:46 Lactobacillus Acidophilus (Culturelle) 1 tab THREE TIMES A DAY ORAL 12/21/18 09:00 01/20/19 08:59 12/23/18 08:29 Morphine Sulfate (Morphine Sulfate) 1 mg Q4H PRN IVP For Pain 12/19/18 19:45 12/26/18 19:44 12/19/18 23:40 Multivitamins (Multivitamins) 1 tab DAILY ORAL 12/21/18 09:00 01/20/19 08:59 12/23/18 08:29 Ondansetron HCl (Zofran) 4 mg Q6H PRN IVP Nausea & Vomiting 12/19/18 19:45 01/18/19 19:44 Pantoprazole (Protonix) 40 mg DAILY IVP 12/20/18 09:00 01/19/19 08:59 12/23/18 08:30 Piperacillin Sod/ Tazobactam Sod 3.375 gm/Sodium Chloride 110 ml @ 27.5 mls/hr EVERY 8 HOURS IVPB 12/19/18 22:00 12/24/18 21:59 12/23/18 05:44 Julian Florentino MD Dec 23, 2018 12:36
--- NOTE | 2018-12-23 13:27 | Surgery Progress Note ---
Surgery Progress Note Subjective Additional Comments No acute events. Leukocytosis of 14,000 today and trending up. States pain is minimal. No nausea vomiting fever chills. Objective Last 24 Hour Vital Signs Date Time Temp Pulse Resp B/P (MAP) Pulse Ox O2 Delivery O2 Flow Rate FiO2 12/23/18 12:00 98.6 67 18 132/65 (87) 100 12/23/18 09:00 Room Air 12/23/18 08:00 98.7 80 18 119/77 (91) 98 12/23/18 04:00 97.2 85 18 120/94 (103) 95 12/23/18 00:00 99.8 76 17 122/85 (97) 98 12/22/18 21:00 Room Air 12/22/18 20:00 98.6 87 17 115/60 (78) 97 12/22/18 16:00 99.9 84 17 115/68 (84) 98 I&O Intake and Output 12/22/18 12/23/18 19:00 07:00 Intake Total 2242.5 ml 5337.5 ml Output Total 2 ml Balance 2242.5 ml 5335.5 ml Intake Oral 1500 ml IV Total 342.5 ml 1937.5 ml Other 1900 ml 1900 ml Stool Total 2 ml # Voids 2 # Bowel Movements 2 Cardiovascular: RSR Respiratory: clear Abdomen: soft, flat, non-tender, present bowel sounds, non-distended Extremities: no edema, no tenderness, no cyanosis Laboratory Tests Test 12/23/18 06:47 White Blood Count 14.3 K/UL (4.8-10.8) H Red Blood Count 4.47 M/UL (4.70-6.10) L Hemoglobin 14.1 G/DL (14.2-18.0) L Hematocrit 41.3 % (42.0-52.0) L Mean Corpuscular Volume 92 FL (80-99) Mean Corpuscular Hemoglobin 31.7 PG (27.0-31.0) H Mean Corpuscular Hemoglobin Concent 34.3 G/DL (32.0-36.0) Red Cell Distribution Width 10.4 % (11.6-14.8) L Platelet Count 299 K/UL (150-450) Mean Platelet Volume 7.8 FL (6.5-10.1) Neutrophils (%) (Auto) 78.8 % (45.0-75.0) H Lymphocytes (%) (Auto) 11.3 % (20.0-45.0) L Monocytes (%) (Auto) 9.1 % (1.0-10.0) Eosinophils (%) (Auto) 0.5 % (0.0-3.0) Basophils (%) (Auto) 0.4 % (0.0-2.0) Sodium Level 137 MMOL/L (136-145) Potassium Level 3.7 MMOL/L (3.5-5.1) Chloride Level 99 MMOL/L (98-107) Carbon Dioxide Level 29 MMOL/L (21-32) Anion Gap 9 mmol/L (5-15) Blood Urea Nitrogen 10 mg/dL (7-18) Creatinine 1.3 MG/DL (0.55-1.30) Estimat Glomerular Filtration Rate > 60 mL/min (>60) Glucose Level 91 MG/DL (74-106) Calcium Level 9.0 MG/DL (8.5-10.1) Total Bilirubin 1.0 MG/DL (0.2-1.0) Aspartate Amino Transf (AST/SGOT) 41 U/L (15-37) H Alanine Aminotransferase (ALT/SGPT) 104 U/L (12-78) H Alkaline Phosphatase 111 U/L (46-116) Total Protein 7.3 G/DL (6.4-8.2) Albumin 2.8 G/DL (3.4-5.0) L Globulin 4.5 g/dL Albumin/Globulin Ratio 0.6 (1.0-2.7) L Plan Problems: (1) Perforated appendicitis Assessment & Plan: This is a 28-year-old male with 2-week of right lower quadrant abdominal pain who was noted to have focal right lower quadrant tenderness with rebound and guarding on my examination. Leukocytosis 20,000. CT scan with complex multiloculated fluid collection abscess in the right lower quadrant indistinct from the cecum. Likely her presenting acute perforated appendicitis with abscess. Given the duration and above CT findings and high suspicion for perforated acute appendicitis. At this time would recommend nonoperative management with IV antibiotics. Will discuss with radiology for potential catheter drainage if possible. - non favorable Okay for diet from surgical standpoint will follow with exam, investigation, recommendations. leukocytosis today 14k and up will monitor if trending up may need surgery Continue with IV antibiotics until pain resolved and leukocytosis normal. Thank you (2) Abdominal abscess Assessment & Plan: In the right lower quadrant of the abdomen, there is a multicystic partially enhancing mass or fluid collection. This is suspicious for a multiloculated abscess and is inseparable from the cecum. The hepatic flexure and transverse colon are identified but in the location of the multicystic mass the cecum is difficult to distinguish and may be collapsed or may be a part of this mass. Evaluation with oral contrast is recommended and repeat CT suggested. Surrounding fatty soft tissue stranding indicative of inflammation noted. There is some perinephric fluid present. Overall the area of the multiloculated abscess versus mass measures about 9 to 10 cm in the transverse axis and 13 cm craniocaudal. One consideration is a perforated appendicitis. Mild basilar reticulation noted consistent with atelectasis. The liver is enlarged measuring 19 cm. Spleen is enlarged measuring 15 cm. No evidence of bowel obstruction. Bladder is unremarkable. There is a small amount of pelvic free fluid. Gallbladder is unremarkable. There is no hydronephrosis. Elmer Adan Dec 23, 2018 13:27
--- NOTE | 2018-12-23 14:31 | NUR ---
NURSE NOTES: PT AXOX4, CALM, RESTING IN BED. PT IS AMBULATORY WITH STEADY GAIT. PAIN IS MINIMAL TO NONE, PER PT. DENIES N/V OR DIZZINESS WHEN AMBULATING. IN NO APPARENT DISTRESS AT THIS TIME. WILL CONTINUE TO MONITOR.
--- NOTE | 2018-12-23 15:29 | Pulmonology Progress Note ---
Assessment/Plan Assessment/Plan Pulmonary Progress Note HPI: Patient is a 28-year-old male admitted with multicystic right lower quadrant collection, he complained of abdominal pain for approximately 3 weeks , no fever or chills but notes intermittent sweats. Denies chest pain or shortness of breath, has had a non productive cough, now resolved. Previously noted small non incarcerated hernia in the right lower quadrant by ultrasound. No new complaints On SQ Heparin PMH: Denies, no h/o Asthma PSH: Denies Allergies: No Known Allergies Social Hx: Denies drug or alcohol abuse All Other Systems: negative except mentioned in HPI Physical Exam Vital signs noted General: Awake and alert, no acute distress HEENT: NC/AT. EOMI. Cardiovascular: RRR. S1 and S2 normal. No murmur appreciated Chest: Normal work of breathing. No cough, wheezing or crackles Abdomen: Abdomen is soft, nondistended. Tenderness palpation of the right lower quadrant near the anterior iliac crest. No rebound. periumbilical tenderness or suprapubic tenderness.No masses palpable Skin: Intact. No abrasions, laceration or rash over the exposed skin Extremities: Normal tone and bulk. Moving all extremities. No obvious deformity. No edema Neuro: Awake and alert. Mentating appropriately. Impression: Abdominal abscess Mild cough PLan Continue Antibiotics CXR pending PPX PRN O2 HHN PRN Laboratory Tests Noted Abdominal CT scan: right lower quadrant multicystic intra-abdominal abscess . Subjective ROS Limited/Unobtainable: No Allergies: Coded Allergies: No Known Allergies (Unverified , 12/19/18) Objective Last 24 Hour Vital Signs Date Time Temp Pulse Resp B/P (MAP) Pulse Ox O2 Delivery O2 Flow Rate FiO2 12/23/18 12:00 98.6 67 18 132/65 (87) 100 12/23/18 09:00 Room Air 12/23/18 08:00 98.7 80 18 119/77 (91) 98 12/23/18 04:00 97.2 85 18 120/94 (103) 95 12/23/18 00:00 99.8 76 17 122/85 (97) 98 12/22/18 21:00 Room Air 12/22/18 20:00 98.6 87 17 115/60 (78) 97 12/22/18 16:00 99.9 84 17 115/68 (84) 98 Intake and Output 12/22/18 12/23/18 19:00 07:00 Intake Total 2242.5 ml 5337.5 ml Output Total 2 ml Balance 2242.5 ml 5335.5 ml Intake Oral 1500 ml IV Total 342.5 ml 1937.5 ml Other 1900 ml 1900 ml Stool Total 2 ml # Voids 2 # Bowel Movements 2 Microbiology Date/Time Source Procedure Growth Status 12/21/18 13:00 Stool Clostridium difficile Toxin Assay - Final Complete Laboratory Tests 12/23/18 06:47: White Blood Count 14.3H, Red Blood Count 4.47L, Hemoglobin 14.1L, Hematocrit 41.3L, Mean Corpuscular Volume 92, Mean Corpuscular Hemoglobin 31.7H, Mean Corpuscular Hemoglobin Concent 34.3, Red Cell Distribution Width 10.4L, Platelet Count 299, Mean Platelet Volume 7.8, Neutrophils (%) (Auto) 78.8H, Lymphocytes (%) (Auto) 11.3L, Monocytes (%) (Auto) 9.1, Eosinophils (%) (Auto) 0.5, Basophils (%) (Auto) 0.4, Sodium Level 137, Potassium Level 3.7, Chloride Level 99, Carbon Dioxide Level 29, Anion Gap 9, Blood Urea Nitrogen 10, Creatinine 1.3, Estimat Glomerular Filtration Rate > 60, Glucose Level 91, Calcium Level 9.0, Total Bilirubin 1.0, Aspartate Amino Transf (AST/SGOT) 41H, Alanine Aminotransferase (ALT/SGPT) 104H, Alkaline Phosphatase 111, Total Protein 7.3, Albumin 2.8L, Globulin 4.5, Albumin/Globulin Ratio 0.6L Current Medications Medications (Trade) Dose Ordered Sig/Leslie Route PRN Reason Start Time Stop Time Status Last Admin Dose Admin Acetaminophen (Tylenol) 650 mg Q4H PRN ORAL Mild Pain/Temp > 100.5 12/19/18 20:15 01/18/19 20:14 12/21/18 17:29 Albuterol/ Ipratropium (Albuterol/ Ipratropium) 3 ml Q6H PRN HHN Shortness of Breath 12/21/18 16:30 12/26/18 16:29 Dextrose/Sodium Chloride 1,000 ml @ 50 mls/hr Q20H IV 12/22/18 10:00 01/21/19 09:59 12/23/18 05:44 Heparin Sodium (Porcine) (Heparin 5000 units/ml) 5,000 units EVERY 12 HOURS SUBQ 12/19/18 21:00 01/18/19 20:59 12/23/18 08:46 Lactobacillus Acidophilus (Culturelle) 1 tab THREE TIMES A DAY ORAL 12/21/18 09:00 01/20/19 08:59 12/23/18 13:21 Morphine Sulfate (Morphine Sulfate) 1 mg Q4H PRN IVP For Pain 12/19/18 19:45 12/26/18 19:44 12/19/18 23:40 Multivitamins (Multivitamins) 1 tab DAILY ORAL 12/21/18 09:00 01/20/19 08:59 12/23/18 08:29 Ondansetron HCl (Zofran) 4 mg Q6H PRN IVP Nausea & Vomiting 12/19/18 19:45 01/18/19 19:44 Pantoprazole (Protonix) 40 mg DAILY IVP 12/20/18 09:00 01/19/19 08:59 12/23/18 08:30 Piperacillin Sod/ Tazobactam Sod 3.375 gm/Sodium Chloride 110 ml @ 27.5 mls/hr EVERY 8 HOURS IVPB 12/19/18 22:00 12/24/18 21:59 12/23/18 13:21 Neto Koo MD Dec 23, 2018 15:28
[2018-12-23 15:58] VITALS: BP 108/66
--- NOTE | 2018-12-23 19:33 | NUR ---
HAND-OFF: Report given to Nirali CARDONA RN.
[2018-12-23 20:00] VITALS: BP 129/72
--- NOTE | 2018-12-23 20:00 | NUR ---
NURSE NOTES: received pt in bed. AAOx4 in room air. no acute distress. no c/o pain. call light within reach. bed is the lowest position. will continue to provide plan of care.
[2018-12-24] VITALS: BP 113/65
[2018-12-24 04:00] VITALS: BP 112/57
[2018-12-24] MEDS: Piperacillin/Tazobactam 3.375 GM in NS 110 ML IVPB SCH ×3 (05:39→21:28)
[2018-12-24] MEDS: D5NS 1,000 ML IV SCH ×2 (05:39→21:28)
[2018-12-24 07:26] LABS: BASOPHILS % (AUTO) 0.6 % (0.0-2.0); HEMATOCRIT 41.3 % (42.0-52.0); HEMOGLOBIN 14.5 G/DL (14.2-18.0); MEAN CORPUSCULAR VOLUME 91 FL (80-99); MONOCYTES % (AUTO) 7.9 % (1.0-10.0); NEUTROPHILS % (AUTO) 79.5 % (45.0-75.0); PLATELET COUNT 322 K/UL (150-450); RED BLOOD COUNT 4.55 M/UL (4.70-6.10); RED CELL DISTRIBUTION WIDTH 10.4 % (11.6-14.8); WHITE BLOOD COUNT 10.5 K/UL (4.8-10.8)
--- NOTE | 2018-12-24 07:30 | NUR ---
NURSE NOTES: Received pt from GABE CHAN. Pt is alert and orient. pt is in RA, no SOB or acute respiratory distress noted. Pt has intact iv access LH 22G is running well. pt is eating breakfast independently. All needs attended, bed is locked and is in the lowest position. call light within easy reach. will continue to monitor.
--- NOTE | 2018-12-24 07:54 | NUR ---
HAND-OFF: Report given to Luis Antonio CHAN.
[2018-12-24 08:00] VITALS: BP 115/66
[2018-12-24 08:06] LABS: ALANINE AMINOTRANSFERASE 140 U/L (12-78); ALBUMIN 2.9 G/DL (3.4-5.0); ALBUMIN/GLOBULIN RATIO 0.6 (1.0-2.7); ALKALINE PHOSPHATASE 138 U/L (46-116); ANION GAP 6 mmol/L (5-15); ASPARTATE AMINO TRANSFERASE 45 U/L (15-37); BILIRUBIN,TOTAL 1.2 MG/DL (0.2-1.0); BLOOD UREA NITROGEN 9 mg/dL (7-18); CALCIUM 9.2 MG/DL (8.5-10.1); CARBON DIOXIDE 30 MMOL/L (21-32); CHLORIDE 100 MMOL/L (98-107); CREATININE 1.3 MG/DL (0.55-1.30); POTASSIUM 3.8 MMOL/L (3.5-5.1); SODIUM 136 MMOL/L (136-145)
[2018-12-24 08:07] LABS: BILIRUBIN,DIRECT 0.3 MG/DL (0.0-0.3)
[2018-12-24] MEDS: Pantoprazole Inj IVP SCH (08:53)
[2018-12-24] MEDS: Lactobacillus-GG tablet ORAL SCH ×3 (08:53→17:14)
--- NOTE | 2018-12-24 08:53 | General Progress Note ---
Assessment/Plan Problem List: (1) Abdominal abscess SNOMED: 83758791 (2) Perforated appendicitis ICD Codes: K35.32 - Acute appendicitis with perforation and localized peritonitis, without abscess SNOMED: 65772743 Status: stable, progressing Assessment/Plan: ivf iv abx per ID monitor labs/renal fxn pain rx poc/dc planning per surgery Subjective ROS Limited/Unobtainable: No Constitutional: Reports: malaise, weakness HEENT: Reports: no symptoms Cardiovascular: Reports: no symptoms Respiratory: Reports: no symptoms Gastrointestinal/Abdominal: Reports: abdominal pain Genitourinary: Reports: no symptoms Neurologic/Psychiatric: Reports: no symptoms Endocrine: Reports: no symptoms Hematologic/Lymphatic: Reports: no symptoms Allergies: Coded Allergies: No Known Allergies (Unverified , 12/19/18) All Systems: reviewed and negative except above Subjective no events. ID and surgery noted. feels fine." decreased abd pain and fevers. Wbc decreased 10 10k. tolerating po walking Objective Last 24 Hour Vital Signs Date Time Temp Pulse Resp B/P (MAP) Pulse Ox O2 Delivery O2 Flow Rate FiO2 12/24/18 08:00 98.9 80 20 115/66 (82) 98 12/24/18 04:00 99.1 66 16 112/57 (75) 98 12/24/18 00:00 99.2 78 20 113/65 (81) 98 12/23/18 21:00 Room Air 12/23/18 20:00 99.4 76 20 129/72 (91) 12/23/18 15:58 98.8 82 20 108/66 (80) 97 12/23/18 12:00 98.6 67 18 132/65 (87) 100 12/23/18 09:00 Room Air Intake and Output 12/23/18 12/24/18 19:00 07:00 Intake Total 1560.0 ml 737.5 ml Balance 1560.0 ml 737.5 ml Intake Oral 1200 ml IV Total 360.0 ml 737.5 ml # Voids 10 Laboratory Tests 12/24/18 06:55: White Blood Count 10.5, Red Blood Count 4.55L, Hemoglobin 14.5, Hematocrit 41.3L , Mean Corpuscular Volume 91, Mean Corpuscular Hemoglobin 32.0H, Mean Corpuscular Hemoglobin Concent 35.2, Red Cell Distribution Width 10.4L, Platelet Count 322, Mean Platelet Volume 7.7, Neutrophils (%) (Auto) 79.5H, Lymphocytes (%) (Auto) 11.0L, Monocytes (%) (Auto) 7.9, Eosinophils (%) (Auto) 1.0, Basophils (%) (Auto) 0.6, Erythrocyte Sedimentation Rate [Pending], Sodium Level 136, Potassium Level 3.8, Chloride Level 100, Carbon Dioxide Level 30, Anion Gap 6, Blood Urea Nitrogen 9, Creatinine 1.3, Estimat Glomerular Filtration Rate > 60, Glucose Level 100, Calcium Level 9.2, Total Bilirubin 1.2H , Direct Bilirubin 0.3, Aspartate Amino Transf (AST/SGOT) 45H, Alanine Aminotransferase (ALT/SGPT) 140H, Alkaline Phosphatase 138H, C-Reactive Protein , Quantitative 23.0H, Total Protein 7.5, Albumin 2.9L, Globulin 4.6, Albumin/ Globulin Ratio 0.6L Height (Feet): 6 Height (Inches): 4.00 Weight (Pounds): 220 General Appearance: WD/WN, alert Neck: supple Cardiovascular: normal rate, regular rhythm Respiratory/Chest: lungs clear, normal breath sounds Abdomen: normal bowel sounds, soft, no organomegaly, no mass Edema: no edema noted Arm (L), no edema noted Arm (R), no edema noted Leg (L), no edema noted Leg (R), no edema noted Pedal (L), no edema noted Pedal (R), no edema noted Generalized Cedrick Michelle MD Dec 24, 2018 08:52
[2018-12-24] MEDS: Heparin 5000 units/ml inj SUBQ SCH ×2 (08:54→21:29)
[2018-12-24] MEDS ORDERED: D5NS 1000ml IV ONE (10:51)
--- NOTE | 2018-12-24 11:07 | Surgery Progress Note ---
Surgery Progress Note Subjective Symptoms: tolerating diet, voiding well, passing flatus, BM Additional Comments Leukocytosis improved. CRP ESR trending down. No nausea vomiting fever chills. Pain improved. Objective Last 24 Hour Vital Signs Date Time Temp Pulse Resp B/P (MAP) Pulse Ox O2 Delivery O2 Flow Rate FiO2 12/24/18 09:00 Room Air 12/24/18 08:00 98.9 80 20 115/66 (82) 98 12/24/18 04:00 99.1 66 16 112/57 (75) 98 12/24/18 00:00 99.2 78 20 113/65 (81) 98 12/23/18 21:00 Room Air 12/23/18 20:00 99.4 76 20 129/72 (91) 12/23/18 15:58 98.8 82 20 108/66 (80) 97 12/23/18 12:00 98.6 67 18 132/65 (87) 100 I&O Intake and Output 12/23/18 12/24/18 19:00 07:00 Intake Total 1560.0 ml 737.5 ml Balance 1560.0 ml 737.5 ml Intake Oral 1200 ml IV Total 360.0 ml 737.5 ml # Voids 10 Cardiovascular: RSR Respiratory: clear Abdomen: soft, non-tender, present bowel sounds Extremities: no edema, no tenderness, no cyanosis Laboratory Tests Test 12/24/18 06:55 White Blood Count 10.5 K/UL (4.8-10.8) Red Blood Count 4.55 M/UL (4.70-6.10) L Hemoglobin 14.5 G/DL (14.2-18.0) Hematocrit 41.3 % (42.0-52.0) L Mean Corpuscular Volume 91 FL (80-99) Mean Corpuscular Hemoglobin 32.0 PG (27.0-31.0) H Mean Corpuscular Hemoglobin Concent 35.2 G/DL (32.0-36.0) Red Cell Distribution Width 10.4 % (11.6-14.8) L Platelet Count 322 K/UL (150-450) Mean Platelet Volume 7.7 FL (6.5-10.1) Neutrophils (%) (Auto) 79.5 % (45.0-75.0) H Lymphocytes (%) (Auto) 11.0 % (20.0-45.0) L Monocytes (%) (Auto) 7.9 % (1.0-10.0) Eosinophils (%) (Auto) 1.0 % (0.0-3.0) Basophils (%) (Auto) 0.6 % (0.0-2.0) Erythrocyte Sedimentation Rate 40 MM/HR (0-15) H Sodium Level 136 MMOL/L (136-145) Potassium Level 3.8 MMOL/L (3.5-5.1) Chloride Level 100 MMOL/L (98-107) Carbon Dioxide Level 30 MMOL/L (21-32) Anion Gap 6 mmol/L (5-15) Blood Urea Nitrogen 9 mg/dL (7-18) Creatinine 1.3 MG/DL (0.55-1.30) Estimat Glomerular Filtration Rate > 60 mL/min (>60) Glucose Level 100 MG/DL (74-106) Calcium Level 9.2 MG/DL (8.5-10.1) Total Bilirubin 1.2 MG/DL (0.2-1.0) H Direct Bilirubin 0.3 MG/DL (0.0-0.3) Aspartate Amino Transf (AST/SGOT) 45 U/L (15-37) H Alanine Aminotransferase (ALT/SGPT) 140 U/L (12-78) H Alkaline Phosphatase 138 U/L (46-116) H C-Reactive Protein, Quantitative 23.0 mg/dL (0.00-0.90) H Total Protein 7.5 G/DL (6.4-8.2) Albumin 2.9 G/DL (3.4-5.0) L Globulin 4.6 g/dL Albumin/Globulin Ratio 0.6 (1.0-2.7) L Plan Problems: (1) Perforated appendicitis Assessment & Plan: This is a 28-year-old male with 2-week of right lower quadrant abdominal pain who was noted to have focal right lower quadrant tenderness with rebound and guarding on my examination. Leukocytosis 20,000. CT scan with complex multiloculated fluid collection abscess in the right lower quadrant indistinct from the cecum. Likely her presenting acute perforated appendicitis with abscess. Given the duration and above CT findings and high suspicion for perforated acute appendicitis. At this time would recommend nonoperative management with IV antibiotics. Will discuss with radiology for potential catheter drainage if possible. - non favorable Okay for diet from surgical standpoint will follow with exam, investigation, recommendations. Overall improved labs improved. Continue with IV antibiotics until pain resolved and leukocytosis normal. Plan for repeat CT scan tomorrow abdomen pelvis IV and oral contrast. Possible DC planning for tomorrow on oral antibiotics. Thank you (2) Abdominal abscess Assessment & Plan: In the right lower quadrant of the abdomen, there is a multicystic partially enhancing mass or fluid collection. This is suspicious for a multiloculated abscess and is inseparable from the cecum. The hepatic flexure and transverse colon are identified but in the location of the multicystic mass the cecum is difficult to distinguish and may be collapsed or may be a part of this mass. Evaluation with oral contrast is recommended and repeat CT suggested. Surrounding fatty soft tissue stranding indicative of inflammation noted. There is some perinephric fluid present. Overall the area of the multiloculated abscess versus mass measures about 9 to 10 cm in the transverse axis and 13 cm craniocaudal. One consideration is a perforated appendicitis. Mild basilar reticulation noted consistent with atelectasis. The liver is enlarged measuring 19 cm. Spleen is enlarged measuring 15 cm. No evidence of bowel obstruction. Bladder is unremarkable. There is a small amount of pelvic free fluid. Gallbladder is unremarkable. There is no hydronephrosis. Elmer Adan Dec 24, 2018 11:07
[2018-12-24] MEDS ORDERED: Omnipaque-300 100ml vial INJ PRN (11:15)
[2018-12-24] MEDS ORDERED: Gastrograffin 30ml ORAL PRN (11:15)
--- NOTE | 2018-12-24 11:33 | Infectious Diseases Prog Note ---
Assessment/Plan Assessment/Plan antibiotics : zosyn A 1. ruptured appendix with abscess 2. leucocytosis resolved P 1. continue zosyn 2. will follow up clinically Subjective Constitutional: Denies: fever, chills Respiratory: Denies: shortness of breath, dry cough Gastrointestinal/Abdominal: Denies: nausea, vomiting, diarrhea Musculoskeletal: Reports: pain - in abdomen decreased Allergies: Coded Allergies: No Known Allergies (Unverified , 12/19/18) Objective Vital Signs Last 24 Hour Vital Signs Date Time Temp Pulse Resp B/P (MAP) Pulse Ox O2 Delivery O2 Flow Rate FiO2 12/24/18 09:00 Room Air 12/24/18 08:00 98.9 80 20 115/66 (82) 98 12/24/18 04:00 99.1 66 16 112/57 (75) 98 12/24/18 00:00 99.2 78 20 113/65 (81) 98 12/23/18 21:00 Room Air 12/23/18 20:00 99.4 76 20 129/72 (91) 12/23/18 15:58 98.8 82 20 108/66 (80) 97 12/23/18 12:00 98.6 67 18 132/65 (87) 100 Height (Feet): 6 Height (Inches): 4.00 Weight (Pounds): 220 Respiratory/Chest: lungs clear Cardiovascular: normal rate, regular rhythm, regularly irregular Abdomen: soft, non tender Extremities: no edema Microbiology Date/Time Source Procedure Growth Status 12/21/18 13:00 Stool Clostridium difficile Toxin Assay - Final Complete Laboratory Tests Test 12/24/18 06:55 White Blood Count 10.5 K/UL (4.8-10.8) Red Blood Count 4.55 M/UL (4.70-6.10) L Hemoglobin 14.5 G/DL (14.2-18.0) Hematocrit 41.3 % (42.0-52.0) L Mean Corpuscular Volume 91 FL (80-99) Mean Corpuscular Hemoglobin 32.0 PG (27.0-31.0) H Mean Corpuscular Hemoglobin Concent 35.2 G/DL (32.0-36.0) Red Cell Distribution Width 10.4 % (11.6-14.8) L Platelet Count 322 K/UL (150-450) Mean Platelet Volume 7.7 FL (6.5-10.1) Neutrophils (%) (Auto) 79.5 % (45.0-75.0) H Lymphocytes (%) (Auto) 11.0 % (20.0-45.0) L Monocytes (%) (Auto) 7.9 % (1.0-10.0) Eosinophils (%) (Auto) 1.0 % (0.0-3.0) Basophils (%) (Auto) 0.6 % (0.0-2.0) Erythrocyte Sedimentation Rate 40 MM/HR (0-15) H Sodium Level 136 MMOL/L (136-145) Potassium Level 3.8 MMOL/L (3.5-5.1) Chloride Level 100 MMOL/L (98-107) Carbon Dioxide Level 30 MMOL/L (21-32) Anion Gap 6 mmol/L (5-15) Blood Urea Nitrogen 9 mg/dL (7-18) Creatinine 1.3 MG/DL (0.55-1.30) Estimat Glomerular Filtration Rate > 60 mL/min (>60) Glucose Level 100 MG/DL (74-106) Calcium Level 9.2 MG/DL (8.5-10.1) Total Bilirubin 1.2 MG/DL (0.2-1.0) H Direct Bilirubin 0.3 MG/DL (0.0-0.3) Aspartate Amino Transf (AST/SGOT) 45 U/L (15-37) H Alanine Aminotransferase (ALT/SGPT) 140 U/L (12-78) H Alkaline Phosphatase 138 U/L (46-116) H C-Reactive Protein, Quantitative 23.0 mg/dL (0.00-0.90) H Total Protein 7.5 G/DL (6.4-8.2) Albumin 2.9 G/DL (3.4-5.0) L Globulin 4.6 g/dL Albumin/Globulin Ratio 0.6 (1.0-2.7) L Current Medications Medications (Trade) Dose Ordered Sig/Leslie Route PRN Reason Start Time Stop Time Status Last Admin Dose Admin Acetaminophen (Tylenol) 650 mg Q4H PRN ORAL Mild Pain/Temp > 100.5 12/19/18 20:15 01/18/19 20:14 12/21/18 17:29 Albuterol/ Ipratropium (Albuterol/ Ipratropium) 3 ml Q6H PRN HHN Shortness of Breath 12/21/18 16:30 12/26/18 16:29 Barium Sulfate (Readi-Cat 2) 450 ml NOW PRN ORAL Radiology Procedure 12/24/18 11:15 12/26/18 11:07 Dextrose/Sodium Chloride 1,000 ml @ 50 mls/hr Q20H IV 12/22/18 10:00 01/21/19 09:59 12/24/18 05:39 Diatrizoate Meglum/ Diatrizoate Sod (Gastrografin) 30 ml NOW PRN ORAL Radiology Procedure 12/24/18 11:15 12/26/18 11:14 Heparin Sodium (Porcine) (Heparin 5000 units/ml) 5,000 units EVERY 12 HOURS SUBQ 12/19/18 21:00 01/18/19 20:59 12/24/18 08:54 Iohexol (OMNIPAQUE-300 100ml) 100 ml NOW PRN INJ Radiology Procedure 12/24/18 11:15 12/26/18 11:07 Lactobacillus Acidophilus (Culturelle) 1 tab THREE TIMES A DAY ORAL 12/21/18 09:00 01/20/19 08:59 12/24/18 08:53 Morphine Sulfate (Morphine Sulfate) 1 mg Q4H PRN IVP For Pain 12/19/18 19:45 12/26/18 19:44 12/19/18 23:40 Multivitamins (Multivitamins) 1 tab DAILY ORAL 12/21/18 09:00 01/20/19 08:59 12/24/18 08:53 Ondansetron HCl (Zofran) 4 mg Q6H PRN IVP Nausea & Vomiting 12/19/18 19:45 01/18/19 19:44 Pantoprazole (Protonix) 40 mg DAILY IVP 12/20/18 09:00 01/19/19 08:59 12/24/18 08:53 Piperacillin Sod/ Tazobactam Sod 3.375 gm/Sodium Chloride 110 ml @ 27.5 mls/hr EVERY 8 HOURS IVPB 12/19/18 22:00 12/24/18 21:59 12/24/18 05:39 Lucina Wolff MD Dec 24, 2018 11:33
--- NOTE | 2018-12-24 11:53 | NUR ---
NURSE NOTES: consent form for contrast signed by pt and he is aware be NPO from midnight. will continue to monitor.
[2018-12-24 12:00] VITALS: BP 148/70
--- NOTE | 2018-12-24 13:38 | NUR ---
*-* INSURANCE *-* ALL CLINICALS AND REVIEWS HAVE BEEN FAXED TO: [facility]:SHELIA Sierra: [phone]
--- NOTE | 2018-12-24 15:22 | NUR ---
CASE MANAGEMENT:REVIEW 12/24/18 SI: ACUTE APPENDICITIS W/PERFORATION AND LOCALIZED PERITONITIS W/O ABSCESS 99.2 78 20 113/65 98% ON RA ESR+40 TBILI+1.2 AST/ALT+45/140 CRP+23.0 IS: IV ZOSYN Q8HRS IVF@50/HR LACTOBACILLUS PO TID IV PROTONIX QD HEPARIN SQ Q12 : MED/SURG STATUS 4 [facility]
[2018-12-24 16:00] VITALS: BP 117/68
--- NOTE | 2018-12-24 19:22 | NUR ---
HAND-OFF: Report given to DANG LOPEZ RN.Pt is awake and stable.
--- NOTE | 2018-12-24 19:35 | NUR ---
NURSE NOTES: Patient in bed, awake, alert and oriented. Verbally able to make needs known. Breathing on room air. Respiration is even and unlabored. No complaint of pain or discomfort noted. Skin is warm and dry to touch. IV site on Right hand patent and intact. Pt NPO after midnight. Bed in low and locked position. Call light within reach. Will continue to monitor for safety.
[2018-12-24 20:00] VITALS: BP 107/62
[2018-12-25] VITALS: BP 102/62
--- NOTE | 2018-12-25 00:52 | NUR ---
NURSE NOTES: Pt is in bed, asleep. Evening meds administered as ordered. Pt is NPO after midnight. Informed pt about NPO status and pt verbalized understanding. Bed in low and locked position. Call light within reach. Will continue to monitor for safety.
[2018-12-25 04:00] VITALS: BP 107/60
[2018-12-25] MEDS: Piperacillin/Tazobactam 3.375 GM in NS 110 ML IVPB SCH ×2 (06:13→13:08)
--- NOTE | 2018-12-25 06:30 | NUR ---
NURSE NOTES: Missed 2200 zosyn dose. is aware
[2018-12-25 07:15] VITALS: BP 113/61
--- NOTE | 2018-12-25 07:19 | NUR ---
HAND-OFF: Report given to ROCIO Newsome.
--- NOTE | 2018-12-25 07:20 | NUR ---
NURSE NOTES: Received in bed, patient awake, alert, oriented x4.no sign of distress, denies pain or discomfort NPO post MN.verbalized understanding. Bed in low and locked position. Call light within reach. Will continue to monitor for safety madhavi esteban
--- NOTE | 2018-12-25 09:00 | General Progress Note ---
Assessment/Plan Problem List: (1) Abdominal abscess SNOMED: 20901168 (2) Perforated appendicitis ICD Codes: K35.32 - Acute appendicitis with perforation and localized peritonitis, without abscess SNOMED: 98361926 Status: stable, progressing Assessment/Plan: ivf iv abx per ID ct abd per surgery monitor labs/renal fxn pain rx poc/dc planning per surgery Subjective ROS Limited/Unobtainable: No Constitutional: Reports: no symptoms HEENT: Reports: no symptoms Cardiovascular: Reports: no symptoms Respiratory: Reports: no symptoms Gastrointestinal/Abdominal: Reports: no symptoms Genitourinary: Reports: no symptoms Neurologic/Psychiatric: Reports: no symptoms Endocrine: Reports: no symptoms Hematologic/Lymphatic: Reports: no symptoms Allergies: Coded Allergies: No Known Allergies (Unverified , 12/19/18) All Systems: reviewed and negative except above Subjective no events. ID and surgery noted. feels fine." npo for ct this am Objective Last 24 Hour Vital Signs Date Time Temp Pulse Resp B/P (MAP) Pulse Ox O2 Delivery O2 Flow Rate FiO2 12/25/18 08:10 Room Air 12/25/18 07:15 97.8 65 18 113/61 (78) 99 12/25/18 04:00 98.0 66 18 107/60 (76) 98 12/25/18 00:00 98.2 66 18 102/62 (75) 99 12/24/18 21:00 Room Air 12/24/18 20:00 97.7 67 18 107/62 (77) 100 12/24/18 16:00 97.9 74 20 117/68 (84) 98 12/24/18 12:00 98.3 70 20 148/70 (96) 100 12/24/18 09:00 Room Air Intake and Output 12/24/18 12/25/18 19:00 07:00 Intake Total 2352.5 ml 300 ml Balance 2352.5 ml 300 ml Intake Oral 1560 ml 200 ml IV Total 792.5 ml 100 ml # Voids 7 1 Height (Feet): 6 Height (Inches): 4.00 Weight (Pounds): 220 Objective General Appearance: WD/WN, alert Neck: supple Cardiovascular: normal rate, regular rhythm Respiratory/Chest: lungs clear, normal breath sounds Abdomen: normal bowel sounds, soft, no organomegaly, no mass Edema: no edema noted Arm (L), no edema noted Arm (R), no edema noted Leg (L), no edema noted Leg (R), no edema noted Pedal (L), no edema noted Pedal (R), no edema noted Generalized Cedrick Michelle MD Dec 25, 2018 09:00
--- NOTE | 2018-12-25 10:58 | Infectious Diseases Prog Note ---
"Assessment/Plan Assessment/Plan antibiotics : zosyn A 1. ruptured appendix with abscess 2. leucocytosis resolved P 1. continue zosyn in hospital 2. po levoquin, flagyl on discharge 7 more days 3. will follow up clinically 4. CT abdomen | pelvis pending Subjective Constitutional: Denies: fever, chills Respiratory: Reports: shortness of breath - decreased; Denies: dry cough Gastrointestinal/Abdominal: Denies: nausea, vomiting, diarrhea Musculoskeletal: Reports: pain - decreased in abdomen Allergies: Coded Allergies: No Known Allergies (Unverified , 12/19/18) Objective Vital Signs Last 24 Hour Vital Signs Date Time Temp Pulse Resp B/P (MAP) Pulse Ox O2 Delivery O2 Flow Rate FiO2 12/25/18 08:10 Room Air 12/25/18 07:15 97.8 65 18 113/61 (78) 99 12/25/18 04:00 98.0 66 18 107/60 (76) 98 12/25/18 00:00 98.2 66 18 102/62 (75) 99 12/24/18 21:00 Room Air 12/24/18 20:00 97.7 67 18 107/62 (77) 100 12/24/18 16:00 97.9 74 20 117/68 (84) 98 12/24/18 12:00 98.3 70 20 148/70 (96) 100 Height (Feet): 6 Height (Inches): 4.00 Weight (Pounds): 220 Respiratory/Chest: lungs clear Cardiovascular: normal rate, regular rhythm, no gallop/murmur Abdomen: soft, non tender Extremities: no edema Current Medications Medications (Trade) Dose Ordered Sig/Leslie Route PRN Reason Start Time Stop Time Status Last Admin Dose Admin Acetaminophen (Tylenol) 650 mg Q4H PRN ORAL Mild Pain/Temp > 100.5 12/19/18 20:15 01/18/19 20:14 12/21/18 17:29 Albuterol/ Ipratropium (Albuterol/ Ipratropium) 3 ml Q6H PRN HHN Shortness of Breath 12/21/18 16:30 12/26/18 16:29 Barium Sulfate (Readi-Cat 2) 450 ml NOW PRN ORAL Radiology Procedure 12/24/18 11:15 12/26/18 11:07 Dextrose/Sodium Chloride 1,000 ml @ 50 mls/hr Q20H IV 12/22/18 10:00 01/21/19 09:59 12/24/18 21:28 Diatrizoate Meglum/ Diatrizoate Sod (Gastrografin) 30 ml NOW PRN ORAL Radiology Procedure 12/24/18 11:15 12/26/18 11:14 Heparin Sodium (Porcine) (Heparin 5000 units/ml) 5,000 units EVERY 12 HOURS SUBQ 12/19/18 21:00 01/18/19 20:59 12/24/18 21:29 Iohexol (OMNIPAQUE-300 100ml) 100 ml NOW PRN INJ Radiology Procedure 12/24/18 11:15 12/26/18 11:07 Lactobacillus Acidophilus (Culturelle) 1 tab THREE TIMES A DAY ORAL 12/21/18 09:00 01/20/19 08:59 12/24/18 17:14 Morphine Sulfate (Morphine Sulfate) 1 mg Q4H PRN IVP For Pain 12/19/18 19:45 12/26/18 19:44 12/19/18 23:40 Multivitamins (Multivitamins) 1 tab DAILY ORAL 12/21/18 09:00 01/20/19 08:59 12/24/18 08:53 Ondansetron HCl (Zofran) 4 mg Q6H PRN IVP Nausea & Vomiting 12/19/18 19:45 01/18/19 19:44 Pantoprazole (Protonix) 40 mg ACBREAKFAST ORAL 12/25/18 06:30 01/24/19 06:29 12/25/18 06:13 Piperacillin Sod/ Tazobactam Sod 3.375 gm/Sodium Chloride 110 ml @ 27.5 mls/hr EVERY 8 HOURS IVPB 12/24/18 14:00 12/29/18 13:59 12/25/18 06:13 Lucina Wolff MD Dec 25, 2018 10:58"
[2018-12-25] MEDS: Lactobacillus-GG tablet ORAL SCH ×2 (11:00→13:08)
[2018-12-25] MEDS: Heparin 5000 units/ml inj SUBQ SCH (11:04)
--- NOTE | 2018-12-25 11:24 | NUR ---
*-* INSURANCE *-* ALL CLINICALS AND REVIEWS HAVE BEEN FAXED TO: [facility] NCM:SHELIA P: [phone] F: [phone] Addendum: 12/25/18 at 1134 by ROSALINDA BABB LEFT VOICEMAIL FOR NCM:SHELIA TO CALL ME BACK JUST TO CONFIRM SHE HAS BEEN RECEIVING CLINICALS.
[2018-12-25 12:35] VITALS: BP 116/74
--- NOTE | 2018-12-25 13:19 | NUR ---
CASE MANAGEMENT:REVIEW 12/25/18 SI: ACUTE APPENDICITIS W/PERFORATION AND LOCALIZED PERITONITIS W/O ABSCESS 98.2 74 24 116/74 99% ON RA IS: IV ZOSYN Q8HRS IVF@50/HR LACTOBACILLUS PO TID IV PROTONIX QD HEPARIN SQ Q12 : MED/SURG STATUS 4 EAST PLAN: REGULAR DIET
--- NOTE | 2018-12-25 13:33 | Diagnostic Imaging Report ---
Clinical Indication: Abdominal pain, leukocytosis, perforated appendicitis demonstrated on recent CT scan Technique: Patient given oral contrast. IV administration nonionic contrast. Venous phase spiral acquisition obtained through the abdomen and pelvis. Multiplanar reconstructions were generated. Total dose length product 889 mGycm. CTDIvol(s) 15 mGy. Dose reduction achieved using automated exposure control Comparison: 12/19/2018 Findings: Demonstrated is mixed attenuation material in the right lower quadrant. The dimensions of this are somewhat unclear as a significant portion of it appears to represent mural thickening of the ascending colon wall. Nonetheless, this measures roughly 5.9 x 4.6 cm orthogonal transverse dimensions, by approximately the 10 cm craniocaudad. Previous dimensions in the comparable planes were roughly 11 x 6 by approximately 12 cm respectively. The low-attenuation and presumably liquid component of this process has markedly decreased, with mostly solid-appearing phlegmon as components persisting. A 2 fluid pockets persist at the posterior margin of this process. There is a small amount of free fluid in the pelvis. This is significantly diminished from the previous study. No evidence of diverticulosis or diverticulitis. Ingested contrast has traversed the entirety of the small bowel and entirety of the colon. Distal esophagus, stomach, duodenum are unremarkable. No free intraperitoneal gas. The liver is enlarged, as previously reported. The gallbladder, bile ducts, pancreas are unremarkable. The spleen is enlarged, as previously reported, measuring 14.6 cm long axis dimension. The adrenals and kidneys are unremarkable. No retroperitoneal or mesenteric mass or adenopathy. No pelvic mass or adenopathy. The included lung bases are clear. The bones are unremarkable Impression: Since 12/19/2018, considerable decrease in size of previously demonstrated right lower quadrant process, currently measuring 5.9 x 4.6 x 10 cm, previously 11 x 6 x 12. This appears to be a combination of intramural and pericecal phlegmon/abscess presumably related to perforated acute appendicitis. The main interim change appears to be a marked decrease in the extent of the recently demonstrated liquid component. While there is some residual low attenuation and therefore presumably fluid/abscess component, most of the residual abnormality appears to be phlegmon rather than abscess. Decreased free pelvic fluid Hepatosplenomegaly, also previously reported The CT scanner at [facility] is accredited by the [employer] and the scans are performed using protocols designed to limit radiation exposure to as low as reasonably achievable to attain images of sufficient resolution adequate for diagnostic evaluation.
--- NOTE | 2018-12-25 15:04 | Surgery Progress Note ---
Surgery Progress Note Subjective Symptoms: improved, pain absent, tolerating diet, voiding well, passing flatus , BM Objective Last 24 Hour Vital Signs Date Time Temp Pulse Resp B/P (MAP) Pulse Ox O2 Delivery O2 Flow Rate FiO2 12/25/18 12:35 98.2 74 24 116/74 (88) 99 12/25/18 08:10 Room Air 12/25/18 07:15 97.8 65 18 113/61 (78) 99 12/25/18 04:00 98.0 66 18 107/60 (76) 98 12/25/18 00:00 98.2 66 18 102/62 (75) 99 12/24/18 21:00 Room Air 12/24/18 20:00 97.7 67 18 107/62 (77) 100 12/24/18 16:00 97.9 74 20 117/68 (84) 98 I&O Intake and Output 12/24/18 12/25/18 19:00 07:00 Intake Total 2352.5 ml 377.5 ml Balance 2352.5 ml 377.5 ml Intake Oral 1560 ml 200 ml IV Total 792.5 ml 177.5 ml # Voids 7 1 Cardiovascular: RSR Respiratory: clear Abdomen: soft, flat, non-tender, present bowel sounds, non-distended Extremities: no edema, no tenderness, no cyanosis Plan Problems: (1) Perforated appendicitis Assessment & Plan: This is a 28-year-old male with 2-week of right lower quadrant abdominal pain who was noted to have focal right lower quadrant tenderness with rebound and guarding on my examination. Leukocytosis 20,000. CT scan with complex multiloculated fluid collection abscess in the right lower quadrant indistinct from the cecum. Likely her presenting acute perforated appendicitis with abscess. Given the duration and above CT findings and high suspicion for perforated acute appendicitis. At this time would recommend nonoperative management with IV antibiotics. Will discuss with radiology for potential catheter drainage if possible. - non favorable Okay for diet from surgical standpoint will follow with exam, investigation, recommendations. Overall improved labs improved. Continue with IV antibiotics until pain resolved and leukocytosis normal. Repeat CT much improved d/c home today on oral abx f/u in office next week thank you Thank you (2) Abdominal abscess Assessment & Plan: In the right lower quadrant of the abdomen, there is a multicystic partially enhancing mass or fluid collection. This is suspicious for a multiloculated abscess and is inseparable from the cecum. The hepatic flexure and transverse colon are identified but in the location of the multicystic mass the cecum is difficult to distinguish and may be collapsed or may be a part of this mass. Evaluation with oral contrast is recommended and repeat CT suggested. Surrounding fatty soft tissue stranding indicative of inflammation noted. There is some perinephric fluid present. Overall the area of the multiloculated abscess versus mass measures about 9 to 10 cm in the transverse axis and 13 cm craniocaudal. One consideration is a perforated appendicitis. Mild basilar reticulation noted consistent with atelectasis. The liver is enlarged measuring 19 cm. Spleen is enlarged measuring 15 cm. No evidence of bowel obstruction. Bladder is unremarkable. There is a small amount of pelvic free fluid. Gallbladder is unremarkable. There is no hydronephrosis. Elmer Adan Dec 25, 2018 15:04
[2018-12-25] MEDS ORDERED: MULTIVITAMINS1 EAC2 ORAL (15:39)
[2018-12-25] MEDS ORDERED: PROTONIX40 MG ORAL (15:39)
[2018-12-25 15:40] VITALS: BP 110/60
[2018-12-25] MEDS ORDERED: ACIDOPHILUS-PE1 EAC3 PO (15:40)
[2018-12-25] MEDS ORDERED: ACETAMINOPHEN325 M1 ORAL (15:41)
--- NOTE | 2018-12-25 16:04 | NUR ---
NURSE NOTES: PER DR MORALES HE WILL CALL PT PREFERRED PHARMACY [facility] IN THE EVENING , RELAYED TO MD THAT PT IS ANXIOUS MD MIGHT CALL LATE AND PHARMACY MIGHT BE CLOSED
--- NOTE | 2018-12-25 16:39 | NUR ---
nurse notes discharge to home obtained, patient agreed with the plan of care, discharge packet handed to patient, discharge instruction teaching done, all questions answered verbalized understanding [id number] discharged in stable condition with all belongings taken accompanied by family , discharged via private car, with all belongings taken madhavi esteban
[2018-12-25] MEDS ORDERED: D5NS 1000ml IV ONE (17:09)
--- NOTE | 2018-12-26 10:04 | Discharge Summary ---
Discharge Summary Discharge Summary _ DATE OF ADMISSION: 12/19/2018 DATE OF DISCHARGE: 12/25/2018 DISCHARGED BY: Dr. Michelle REASON FOR ADMISSION: 28-year-old male, not significant past medical history , who began to develop right lower quadrant abdominal discomfort approximately 2-3 weeks ago. Pain initially was described as sharp in the right lower quadrant without radiation. He initially did not think much of it , but then went to his primary care physician for evaluation. Given the duration of pain, it was thought to be potential for a new forming hernia , as pain was described as aggravated by movement and exercise. He had an ultrasound in the office, which identified a potential small right inguinal hernia. He was referred to surgeon for evaluation . On examination patient was noted to have significant right lower quadrant tenderness , unlikely related to hernia. Given duration of pain and physical examination , surgeon recommended patient go directly to the emergency department for evaluation , as surgeon had significant suspicion for possible abdominal pathology. He denied nausea or vomiting. He noted some loose stools. No fever, no chills, but ntermittent sweating. No chest pain or shortness of breath. No prior history of abdominal surgery. Vital signs were stable. Laboratory work-up revealed significant leukocytosis WBC 20.3, stable hemoglobin and hematocrit. Urinalysis revealed +2 protein, no evidence of urinary tract infection. Stable electrolytes. BUN 9, creatinine 1.3. Glucose 105. Total bilirubin 1.4, direct bilirubin 0.3. Stable LFT. Lipase 89. CT scan of the abdomen and pelvis revealed 8 x 9 x 13 cm multicystic mass versus multiloculated abscess in the right lower quadrant abdomen This could be on the basis of ruptured appendicitis. Hepatosplenomegaly Patient subsequently admitted to medical surgical floor for further management. CONSULTANTS: pulmonary Dr. Koo ID specialist Dr. Wolff surgery Dr. Adan [facility] COURSE: Patient admitted to medical surgical floor. Patient started on IV hydration and empiric antibiotic as per ID specialist recommendation. Surgeon closely followed. Surgeon recommended nonoperative management with IV antibiotics. Initially surgeon discussed with radiology potential for catheter drainage placement if possible , but it was not favorable to do. Stool for C. difficile was negative. Patient was on empiric antibiotic IV Zosyn as per ID specialist recommendation. Leukocytosis trended down , and on day of discharge 10.5. Intermittent fevers resolved. Pain management was addressed. Supportive care provided. DVT and GI prophylaxis provided. Patient was able to tolerate diet. Financial Administrator followed for mild cough. Initial CT scan of abdomen and pelvis revealed mild basilar reticulation noted consistent with atelectasis. Chest x-ray revealed no acute cardiopulmonary pathology. Pulse oximetry was stable on room air. CT scan of the abdomen and pelvis was repeated and revealed considerable decrease in size of previously demonstrated right lower quadrant process, measuring 5.9 x 4.6 x 10 cm. It appeared to be a combination of intramural and pericecal phlegmon/abscess , presumably related to perforated acute appendicitis. The main interim change appeared to be a marked decrease in the extent of the recently demonstrated liquid component. Most of the residual abnormality appeared to be phlegmon rather than abscess. Surgeon cleared for discharge with outpatient follow up next week. ID specialist recommended continue Levaquin and Flagyl on discharge for additional 7 days. Patient was able to tolerate diet FINAL DIAGNOSES: Abdominal abscess Perforated appendicitis Mild cough Leukocytosis- resolved DISCHARGE MEDICATIONS: See Medication Reconciliation list. DISCHARGE INSTRUCTIONS: Patient was discharged home. Follow-up with a surgeon as outpatient next week. I have been assigned to dictate discharge summary for this account. I was not involved in the patient's management. Ermelinda Francisco NP Dec 26, 2018 10:04
--- NOTE | 2018-12-26 14:07 | NUR ---
*-* INSURANCE *-* ALL CLINICALS AND REVIEWS HAVE BEEN FAXED TO: [facility] STEPHON:SHELIA P: [phone] F: [phone]
== END 2018-12-25 17:10 | disposition home or self-care (01) | DRG 372 ==
LOC: EMR 14:40 → 4E 16:25 → EDBEDREQ 17:24
DX: K35.33 Acute appendicitis with perforation, localized peritonitis, and gangrene, with abscess (principal); J98.11 Atelectasis; R05 Cough
CPT/HCPCS: 36415; 71045; 74177; 80053; 81003; 82150; 82248; 83605; 83690; 85007; 85025; 85610; 85651; 85730; 86140; 86850; 86900; 86901; 87324; 96361; 96365; 96366; 96367; 96368; 96375; 99285; J7030